=== PATIENT | female | born 1970 | race African-American/Black ===

== ENCOUNTER 2024-02-25 10:51 | Emergency (ER) | payer MEDICAID ==
[~2024-02-25] VITALS: Ht 172.7 cm; Wt 85.6 kg
[2024-02-25 11:51] LABS: Eosinophils # (auto) 0.2 10 ^3/uL (0-0.8); Hemoglobin 8.2 g/dL (12.2-16.2); Lymphocytes # (auto) 1.6 10 ^3/uL (0.4-5.4); Mean Corpuscular Volume 65.2 fL (80.0-100.0); Neutrophils # (auto) 2.5 10 ^3/uL (1.6-8.6); White Blood Cell 4.7 10^3/uL (4.4-10.8)
[2024-02-25 11:53] LABS: Chloride 110 mmol/L (98-107); Potassium 4.4 mmol/L (3.5-5.1); Sodium 142 mmol/L (136-145)
[2024-02-25 11:54] LABS: Anion Gap 4 (5-15); Basophils # (auto) 0 10 ^3/uL (0-0.2); Carbon Dioxide 28 mmol/L (20-30); Eosinophils % (auto) 4.7 % (0.0-7.0); Hematocrit 26.5 % (36.0-46.0); Lymphocytes % (auto) 34.7 % (10.0-50.0); Mean Corpuscular Hemoglobin 20.2 pg (28.0-32.0); Mean Corpuscular Hgb Conc. 31.1 g/dL (32.0-36.0); Monocytes # (auto) 0.3 10 ^3/uL (0-1.3); Monocytes % (auto) 6.9 % (0.0-12.0); Neutrophils % (auto) 52.7 % (37.0-80.0); Nucleated Red Blood Cells % 0.2 %; Red Blood Cells 4.06 10^6/uL (4.0-5.20); Red Cell Distribution Width 18.8 % (11.8-14.3)
[2024-02-25 11:55] LABS: Calcium 9.8 mg/dL (8.7-10.4)
[2024-02-25 11:59] LABS: BUN/Creatinine Ratio 13.9 (10.0-20.0); Blood Urea Nitrogen 14 mg/dL (9-23); Glucose 109 mg/dL (74-106)
[2024-02-25 12:28] VITALS: O2SAT 97
[2024-02-25] MEDS: cloNIDine HCL 0.1 MG TAB PO ONE (12:35)
[2024-02-25] MEDS ORDERED: AMLO1TAB23 PO ×2 (14:18→14:39)
[2024-02-25 14:42] VITALS: BP 166/76; PULSE 72; RESP 18; O2SAT 100
== END 2024-02-25 14:49 | disposition home or self-care (01) ==
LOC: ER 10:51
DX: I10 Essential (primary) hypertension (principal); D50.9 Iron deficiency anemia, unspecified
CPT/HCPCS: 36415; 80048; 84484; 85025

== ENCOUNTER 2025-07-30 18:17 | Inpatient (IN) | payer MEDICAID ==
[~2025-07-30] VITALS: Ht 172.7 cm; Wt 84.8 kg
[~2025-07-30 18:17] MED LIST: AMLO1TAB23 PO; ATEN25TA PO
--- NOTE | 2025-07-30 19:14 | ED.PDOC ---
GI ASSESSMENT HPI Comments 54 y.o female with PMhx of DM and sickle cell anemia, presents to the ED for a chief complaint of diffused abdominal pain associated with nausea and vomiting. Patient was diagnosed with diverticulitis x 2 weeks ago and admitted at [facility]. She finished her antibiotic course x 2 days ago. She states that pain has not subsided, states eating worsens her pain so she avoids it but now is becoming weak. She has associating acid reflux and bile emesis. She denies any diarrhea, rectal bleeding, fever or chills. Chief Complaint: Abdominal Pain Time Seen by MD: 19:00 Primary Care Provider: NONE Reviewed Notes: Nurses Notes, Medications, Allergies Allergies: Coded Allergies: NO KNOWN ALLERGIES (Unverified , 02/25/24) Home Meds Active Scripts Amlodipine Besylate (Amlodipine Besylate) 10 Mg Tab, 1 TAB PO DAILY, #30 TAB 5 Refills Prov:IVORY DUNCAN MD 02/25/24 Amlodipine Besylate (Amlodipine Besylate) 10 Mg Tab, 1 TAB PO DAILY, #30 TAB 5 Refills Prov:IVORY DUNCAN MD 02/25/24 Information Source: Patient Mode of Arrival: Ambulatory Timing: Weeks Duration: Since onset Quality: Sharp Vomitus: Mucous Stool: Normal Severity: Moderate Pain Location: Diffuse Associated sign and symptoms: Nausea, Vomiting, Abdominal Pain Past Medical History PAST MEDICAL HISTORY: Anemia, DM Surgical History: Denies all surgeries AGING DEPARTMENT SUPERVISOR History: No Pertinent AGING DEPARTMENT SUPERVISOR History Family History Family History: Reviewed,noncontributory to illness, Unknown Social History Smoker: Non-Smoker Alcohol: Denies ETOH Use Drugs: Denies Drug Use Lives In: Home Constitutional: denies: chills, diaphoresis, fatigue, fever, malaise, sweats, weakness, others EENTM: denies: blurred vision, double vision, ear bleeding, ear discharge, ear drainage, ear pain, ear ringing, eye pain, eye redness, hearing loss, mouth pain, mouth swelling, nasal discharge, nose bleeding, nose congestion, nose pain, photophobia, tearing, throat pain, throat swelling, voice changes, others Respiratory: denies: cough, hemoptysis, orthopnea, SOB at rest, shortness of breath, SOB with excertion, stridor, wheezing, others Cardiovascular: denies: chest pain, dizzy spells, diaphoresis, Dyspnea on exertion, edema, irregular heart beat, left arm pain, lightheadedness, palpitations, PND, syncope, others Gastrointestinal: reports: abdominal pain, nausea, vomiting; denies: abdomen distended, blood streaked bowels, constipated, diarrhea, dysphagia, difficulty swallowing, hematemesis, melena, poor appetite, poor fluid intake, rectal bleeding, rectal pain, others Genitourinary: denies: abnormal vagina bleeding, burning, dyspareunia, dysuria, flank pain, frequency, hematuria, incontinence, pain, , vagina discharge, urgency, others Neurological: denies: dizziness, fainting, headache, left sided numbness, left sided weakness, numbness, paresthesia, pre-existing deficit, right sided numbness, right sided weakness, seizure, speech problems, tingling, tremors, weakness, others Musculoskeletal: denies: back pain, gout, joint pain, joint swelling, muscle pain, muscle stiffness, neck pain, others Integumetry: denies: bruises, change in color, change in hair/nails, dryness, laceration, lesions, lumps, rash, wounds, others Hematologic/Lymphatic: denies: anemia, blood clots, easy bleeding, easy bruising, swollen glands, others Endocrine: denies: excessive hunger, excessive sweating, excessive thirst, excessive urination, flushing, intolerance to cold, intolerance to heat, unexplained weight gain, unexplained weight loss, others Psychiatric: denies: anxiety, bipolar disorder, depression, hopeless, panic disorder, schizophrenia, sleepless, suicidal, others All Other Systems: Reviewed and Negative Physical Exam General Appearance: Moderate Distress HEENT: Normal ENT Inspection, Pharynx Normal, TMs Normal Neck: Full Range of Motion, Non-Tender, Normal, Normal Inspection Respiratory: Chest Non-Tender, Lungs Clear, No Accessory Muscle Use, No Respiratory Distress, Normal Breath Sounds Cardiovascular: No Edema, No JVD, No Murmur, No Gallop, Normal Peripheral Pulses, Regular Rate/Rhythm Breast Exam: Deferred Gastrointestinal: Diffuse, Distended, No Organomegaly, No Pulsatile Mass, Normal Bowel Sounds, Soft, Suprapubic Genitalia: Deferred Pelvic: Deferred Rectal: Deferred Extremities: No calf tenderness, Normal capillary refill, Normal inspection, Normal range of motion, Non-tender, No pedal edema Musculoskeletal : Apperance: Normal Neurologic: Alert, technician support association II-XII nml as Tested, Motor Weakness, Normal Affect, Normal Mood, No Sensory Deficits Cerebellar Function: Normal Reflexes: Normal Skin: Dry, Normal Color, Warm Lymphatic: No Adenopathy Was a procedure done? Was a procedure done?: No GI differential Dx Differential Diagnosis: Diverticular disease, Esophagitis, Gastritis/PUD, Gastroenteritis, Inflammatory BD, Electrolyte Imbalance, Bacterial, Parasitic, Viral X-Ray, Labs, Meds, VS Vital Signs Date Time Temp Pulse Resp B/P (MAP) Pulse Ox O2 Delivery O2 Flow Rate FiO2 07/30/25 18:32 106 07/30/25 18:21 98.0 115 16 154/84 100 98.0 Lab Test 07/30/25 19:10 Range/Units White Blood Count 8.4 4.4-10.8 10^3/uL Red Blood Count 4.69 4.0-5.20 10^6/uL Hemoglobin 9.2 L 12.2-16.2 g/dL Hematocrit 30.0 L 36.0-46.0 % Mean Corpuscular Volume 64.1 L 80.0-100.0 fL Mean Corpuscular Hemoglobin 19.7 L 28.0-32.0 pg Mean Corpuscular Hemoglobin Concent 30.7 L 32.0-36.0 g/dL Red Cell Distribution Width 22.2 H 11.8-14.3 % Platelet Count 510 H 140-450 10^3/uL Mean Platelet Volume 8.1 6.9-10.8 fL Neutrophils (%) (Auto) 76.9 37.0-80.0 % Lymphocytes (%) (Auto) 17.7 10.0-50.0 % Monocytes (%) (Auto) 4.9 0.0-12.0 % Eosinophils (%) (Auto) 0.2 0.0-7.0 % Basophils (%) (Auto) 0.3 0.0-2.0 % Neutrophils # (Auto) 6.5 1.6-8.6 10 ^3/uL Lymphocytes # (Auto) 1.5 0.4-5.4 10 ^3/uL Monocytes # (Auto) 0.4 0-1.3 10 ^3/uL Eosinophils # (Auto) 0 0-0.8 10 ^3/uL Basophils # (Auto) 0 0-0.2 10 ^3/uL Nucleated Red Blood Cells 0.0 % Sodium Level 139 136-145 mmol/L Potassium Level 3.3 L 3.5-5.1 mmol/L Chloride Level 102 98-107 mmol/L Carbon Dioxide Level 24 20-31 mmol/L Anion Gap 13 5-15 Blood Urea Nitrogen 9 9-23 mg/dL Creatinine 1.07 H 0.550-1.02 mg/dL Glomerular Filtration Rate Calc 61 >90 mL/min BUN/Creatinine Ratio 8.4 L 10.0-20.0 Serum Glucose 155 H 74-106 mg/dL Calcium Level 9.9 8.7-10.4 mg/dL Total Bilirubin 0.6 0.2-1.0 mg/dL Aspartate Amino Transferase (AST) 17 13-40 U/L Alanine Aminotransferase (ALT) < 9 7-40 U/L Alkaline Phosphatase 58 46-116 U/L Total Protein 8.7 H 5.7-8.2 g/dL Albumin 4.4 3.2-4.8 g/dL Lipase 30 12-53 U/L Time of 1ST Reevaluation: 19:08 Reevaluation 1ST: Unchanged Patient Education/Counseling: Diagnosis, Treatment, Prognosis Family Education/Counseling: No Family Present SEPSIS Sepsis Screen Date sepsis recognized/suspect: Jul 30, 2025 Time Sepsis recognized/suspect: 1820 Recent Procedure: No On Antibiotic Therapy: No Respiratory Rate >20: No Heart Rate >90: Yes Temp<36 C (96.8 F) or >38.3 C: No SBP <90 or MAP <65 mmHG: No New Acute Mental Status Change: No Is the patient on CPAP, BIPAP,: No Physician Orders Electrocardigram (07/30/25 18:45) Urinalysis (07/30/25 19:04) Ct Ab Pel Wo Con-No Oral Or Iv (07/30/25 19:04) Heplock Iv (07/30/25 19:04) Pelvic Setup (07/30/25 19:04) Or Scrub Tech (07/30/25 19:04) Blood Pressure (07/30/25 19:04) Ngt/Ogt (07/30/25 ) Vital Signs Date Time Temp Pulse Resp B/P (MAP) Pulse Ox O2 Delivery O2 Flow Rate FiO2 07/30/25 18:32 106 07/30/25 18:21 98.0 115 16 154/84 100 98.0 Laboratory Tests Test 07/30/25 19:10 White Blood Count 8.4 10^3/uL (4.4-10.8) Departure 1 Departure Time of Disposition: 20:28 Impression: Primary Impression: Intractable abdominal pain Additional Impression: Small bowel obstruction Disposition: ADMITTED INPATIENT Admit to: Med Surg Condition: Fair Critical Care Note Critical Care Time?: No Stability Stability form required: No I personally scribed for STEFANI ROONEY MD ([email or web address]) on 07/30/25 at 19:14. Electronically submitted by Leelee Valencia ([facility]). STEFANI ROONEY MD Jul 30, 2025 19:14
[2025-07-30 19:30] LABS: Hematocrit 30.0 % (36.0-46.0); Hemoglobin 9.2 g/dL (12.2-16.2); Mean Corpuscular Hemoglobin 19.7 pg (28.0-32.0)
[2025-07-30 19:32] LABS: Mean Corpuscular Volume 64.1 fL (80.0-100.0); Nucleated Red Blood Cells % 0.0 %
[2025-07-30 19:43] LABS: Albumin 4.4 g/dL (3.2-4.8); Alkaline Phosphatase 58 U/L (46-116); Anion Gap 13 (5-15); BUN/Creatinine Ratio 8.4 (10.0-20.0); Bilirubin, Total 0.6 mg/dL (0.2-1.0); Calcium 9.9 mg/dL (8.7-10.4); Carbon Dioxide 24 mmol/L (20-31); Chloride 102 mmol/L (98-107); Lipase 30 U/L (12-53); Sodium 139 mmol/L (136-145)
[2025-07-30 19:44] LABS: Alanine Aminotransferase < 9 U/L (7-40); Blood Urea Nitrogen 9 mg/dL (9-23); Glucose 155 mg/dL (74-106); Potassium 3.3 mmol/L (3.5-5.1); Total Protein 8.7 g/dL (5.7-8.2)
--- NOTE | 2025-07-30 20:19 | DVH ---
EXAM: CT CT AB PEL WO CON-NO ORAL OR IV History: pain Comparison Study: None TECHNIQUE: Multidetector spiral CT of the abdomen was performed from lung bases to pubic symphysis. Imaging was performed without IV contrast. Axial, coronal and sagittal multiplanar reformats were obtained from the axial data set by the technologist. Radiation Dose : 1. Abdomen/Pelvis: CTDIvol 7.63 mGy, DLP 413.88 mGy*cm. FINDINGS: Evaluation of solid organs is limited due to lack of intravenous contrast use. Lung Bases: No acute or significant lung base finding. Normal heart size. No pleural or pericardial effusion. Liver: The liver is normal in size. No focal lesions. Gallbladder and Biliary Tree: Unremarkable Spleen: Unremarkable Pancreas: The pancreas is grossly normal in appearance. Adrenal Glands: Unremarkable Kidneys: Kidneys are grossly normal without calculi or hydronephrosis. Bladder: Grossly unremarkable for degree of distention. Bowel: Dilated proximal and mid colon measuring up to 6.8 cm with relative transition at the mid descending colon. Suspect some colonic wall thickening in this region. Surrounding inflammatory changes throughout the omentum. Ascites: Absent Lymphadenopathy: No mesenteric, retroperitoneal or periportal lymphadenopathy. Abdominal Wall and Mesentery: Unremarkable. Vasculature: The visualized abdominal aorta is normal in size and caliber. Evaluation of abdominal and pelvic vessels is limited due to lack of intravenous contrast. Pelvic Organs: Unremarkable Musculoskeletal: No aggressive focal bony lesions, acute fractures or dislocation. IMPRESSION: Partial large bowel obstruction with transition at the mid descending colon. The colon here appears slightly thickened with surrounding inflammatory changes. The differential includes a malignancy versus focal colitis/diverticulitis. Endoscopic correlation recommended. Radiation optimization: All CT scans at this facility use at least one of these dose optimization techniques: automated exposure control mA and/or kV adjustment per patient size (includes targeted exams where dose is matched to clinical indication) or iterative reconstruction.
[2025-07-30] MEDS ORDERED: ONDANSETRON HCL 4 MG/2 ML VIAL IV PRN (23:30)
[2025-07-31] VITALS (9 sets, daily range): BP systolic 159–173; BP diastolic 85–100; PULSE 59–91; RESP 14–20; TEMP 97.7–98.7; O2SAT 94–98
[2025-07-31] MEDS: MORPHINE SULFATE 4 MG/ML SYR/VIAL IV ONE (00:23)
[2025-07-31] MEDS: PANTOPRAZOLE 40 MG/10 ML VIAL INJ IV ONE (00:23)
[2025-07-31] MEDS: ONDANSETRON HCL 4 MG/2 ML VIAL IV ONE (00:24)
[2025-07-31] MEDS: SODIUM CHLORIDE 0.9% 1,000 ML IVB ONE (00:24)
--- NOTE | 2025-07-31 00:48 | DVH ---
CHEST RADIOGRAPH INDICATION: NGT placement verification TECHNIQUE: Single frontal view of the chest was obtained COMPARISON: None FINDINGS: NG tube in the mid stomach. Lungs and pleural spaces are clear. Cardiac silhouette and gia are within normal limits. Bones and soft tissues demonstrate no significant abnormality. IMPRESSION: No acute disease.
[2025-07-31] MEDS ORDERED: DEXTROSE (50%) 50ML SYRG IV PRN (02:15)
[2025-07-31] MEDS: SODIUM CHLORIDE 0.9% 1,000 ML IV ONE (02:54)
--- NOTE | 2025-07-31 03:03 | DVHHPRES ---
History of Present Illness Resident Creating Document: DRISS CRAWFORD RESIDENT History of Present Illness Melody Leon is a 54-year-old female with past medical history of hypertension, sickle cell trait presented with complaints of abdominal pain and vomiting since 10 days. Patient was admitted at [facility] 10 days ago for diverticulitis. She was sent home with Flagyl and levofloxacin. Patient states that the pain worsened after she was done with antibiotics. She also complains of associated nausea and decreased appetite. She denies constipation or diarrhea. Patient states that she has lost 10 lb in 1 month. PMHx:hypertension, sickle cell trait PSHx: None Family history: sickle cell trait in daughter Social history: denies smoking, alcohol or illicit drugs. Lives with family Home medication: amlodipine, atenolol Allergic history: none Review of Systems Review of Systems General: patient denies fever, fatigue, weaknes, sweating, any recent changes in appetite and weight HEENT: No headaches, visiual changes, hearing loss, tinnitus, nasal congestion and discharge, and sore throat. Cardiovascular: Denies chest pain, palpitations, dyspnea on exertion, orthopnea, or claudication. Respiratory: No cough, and wheezing. Gastrointestinal: Complains of abdominal pain and vomiting Genitourinary: No dysuria, hematuria, discharge, frequency, urgency, nocturia, incontinence, and urinary retention. Endocrine: No heat or cold intolerance, polydipsia, polyuria, and polyphagia. Neurological: No dizziness, extremity weakness and numbness, tremors, gait disturbance, seizures, and memory impairment. Psychiatric: Denies depression, anxiety,or insomnia. Musculoskeletal: Denies neck pain, stiffness and swelling, back pain, muscle weakness, joint pain, stiffness, swelling, or limited range of motion. Skin: No rashes, itching, skin lesion, changes in hair, nail, skin texture and breast. Hematologic/Lymphatic: Denies easy bruising, bleeding tendencies, or lymph node enlargement. Allergies: Coded Allergies: NO KNOWN ALLERGIES (Unverified , 02/25/24) Medications Current Medications Medications Dose Ordered Sig/Latisha Route Start Time Stop Time Status Last Admin Dose Admin Ondansetron HCl 4 mg Q4HP PRN IV 07/30/25 23:30 Amlodipine Besylate 10 mg DAILY PO 08/01/25 10:00 Atenolol 25 mg BID PO 07/31/25 10:00 Sodium Chloride 1,000 ml @ 100 mls/hr Q10H IV 07/31/25 04:00 Ceftriaxone Sodium 50 ml @ 100 mls/hr DAILY@09 IV 08/01/25 09:00 Metronidazole 100 ml @ 100 mls/hr Q8HR IV 07/31/25 14:00 Ondansetron HCl 4 mg Q8HPRN PRN IV 07/31/25 02:15 Diagnostic Test (Pha) 1 strip ACHS 07/31/25 07:00 Insulin Human Regular ACHS SC 07/31/25 07:00 Dextrose 50 ml UD PRN IV 07/31/25 02:15 Exam Vital Signs Vital Signs Date Time Temp Pulse Resp B/P (MAP) Pulse Ox O2 Delivery O2 Flow Rate FiO2 07/31/25 02:38 97.9 87 17 159/86 (110) 94 97.9 07/30/25 23:01 Room Air* 0 21 Exam General Appearance: Alert, Oriented X3, Cooperative, No acute distress HEENT: Atraumatic, PERRLA, EOMI, Mucous membrane moist/pink Respiratory: Clear to auscultation, Normal air movement Cardiovascular: Regular rate, Normal S1, Normal S2, No murmurs, no chest wall tenderness Abdominal: abdomen soft with no tenderness Extremities: No clubbing, No cyanosis, No edema, Normal pulses, No tenderness/swelling Skin: No rashes, No breakdown, No significant lesion Neuro: Normal gait, Normal speech, Strength at 5/5 X4 ext, Normal tone, Sensation intact, Cranial nerves 3-12 NL, Reflexes 2+ Psych/Mental Status: Mental status NL, Mood NL Labs/Xrays Labs Test 07/30/25 19:10 Range/Units White Blood Count 8.4 4.4-10.8 10^3/uL Red Blood Count 4.69 4.0-5.20 10^6/uL Hemoglobin 9.2 L 12.2-16.2 g/dL Hematocrit 30.0 L 36.0-46.0 % Mean Corpuscular Volume 64.1 L 80.0-100.0 fL Mean Corpuscular Hemoglobin 19.7 L 28.0-32.0 pg Mean Corpuscular Hemoglobin Concent 30.7 L 32.0-36.0 g/dL Red Cell Distribution Width 22.2 H 11.8-14.3 % Platelet Count 510 H 140-450 10^3/uL Mean Platelet Volume 8.1 6.9-10.8 fL Neutrophils (%) (Auto) 76.9 37.0-80.0 % Lymphocytes (%) (Auto) 17.7 10.0-50.0 % Monocytes (%) (Auto) 4.9 0.0-12.0 % Eosinophils (%) (Auto) 0.2 0.0-7.0 % Basophils (%) (Auto) 0.3 0.0-2.0 % Neutrophils # (Auto) 6.5 1.6-8.6 10 ^3/uL Lymphocytes # (Auto) 1.5 0.4-5.4 10 ^3/uL Monocytes # (Auto) 0.4 0-1.3 10 ^3/uL Eosinophils # (Auto) 0 0-0.8 10 ^3/uL Basophils # (Auto) 0 0-0.2 10 ^3/uL Nucleated Red Blood Cells 0.0 % Sodium Level 139 136-145 mmol/L Potassium Level 3.3 L 3.5-5.1 mmol/L Chloride Level 102 98-107 mmol/L Carbon Dioxide Level 24 20-31 mmol/L Anion Gap 13 5-15 Blood Urea Nitrogen 9 9-23 mg/dL Creatinine 1.07 H 0.550-1.02 mg/dL Glomerular Filtration Rate Calc 61 >90 mL/min BUN/Creatinine Ratio 8.4 L 10.0-20.0 Serum Glucose 155 H 74-106 mg/dL Calcium Level 9.9 8.7-10.4 mg/dL Total Bilirubin 0.6 0.2-1.0 mg/dL Aspartate Amino Transferase (AST) 17 13-40 U/L Alanine Aminotransferase (ALT) < 9 7-40 U/L Alkaline Phosphatase 58 46-116 U/L Total Protein 8.7 H 5.7-8.2 g/dL Albumin 4.4 3.2-4.8 g/dL Lipase 30 12-53 U/L SEPSIS Sepsis Screen Date sepsis recognized/suspect: Jul 30, 2025 Time Sepsis recognized/suspect: 2300 Recent Procedure: No On Antibiotic Therapy: No Respiratory Rate >20: No Heart Rate >90: Yes Temp<36 C (96.8 F) or >38.3 C: No SBP <90 or MAP <65 mmHG: No New Acute Mental Status Change: No Is the patient on CPAP, BIPAP,: No Physician Orders Urinalysis (07/30/25 19:04) Ct Ab Pel Wo Con-No Oral Or Iv (07/30/25 19:04) Heplock Iv (07/30/25 19:04) Pelvic Setup (07/30/25 19:04) Online Project Manager (07/30/25 19:04) Blood Pressure (07/30/25:04) Ngt/Ogt (07/30/25 ) Admit (07/30/25 23:17) Allergies (07/30/25 23:17) Code Status (07/30/25 23:17) Ondansetron Hcl (Zofran) (07/30/25 23:30) Complete Blood Count (07/31/25 04:00) Comprehensive Metabolic Panel (07/31/25 04:00) Npo (Nothing By Mouth) Diet (07/31/25 Breakfast) Condition: Fair (07/30/25 23:17) Ng To Lis (07/30/25 23:28) Chest Xray 1 View (07/31/25 00:08) Atenolol Tablet (Tenormin Tablet) (07/31/25 10:00) Stool Occult Blood (07/31/25 02:01) Magnesium (07/31/25 02:01) Iron Panel (07/31/25 02:01) Ferritin (07/31/25 02:01) Vitamin D, 25-Hydroxy (07/31/25 02:01) Vitamin B12 (07/31/25 02:01) Drug Screen (07/31/25 02:01) Urinalysis (07/31/25 02:01) PTPTT (07/31/25 02:01) Erythrocyte Sedimentation Rate (07/31/25 02:01) C-Reactive Protein (07/31/25 02:01) Sodium Chloride 0.9% (07/31/25 02:15) Sodium Chloride 0.9% (07/31/25 04:00) Metronidazole 500mg/100ml (Flagyl 500mg/ (07/31/25 14:00) Ondansetron Hcl (Zofran) (07/31/25 02:15) Blood Culture (07/31/25 02:01) Urine Bacterial Culture (07/31/25 02:01) Clostridium Difficile Toxin (07/31/25 02:01) Stool Wbc (07/31/25 02:01) Potassium Chloride (Potassium Chloride). (07/31/25 02:15) Hemoglobin A1c (07/31/25 02:09) Glucose Blood (Accu-Chek Comfort Curve T (07/31/25 07:00) Insulin R (Human) (Insulin R) (07/31/25 07:00) Dextrose 50% Syringe (07/31/25 02:15) Ceftriaxone 1gm/50ml (Rocephin) (07/31/25 02:30) Metronidazole 500mg/100ml (Flagyl 500mg/ (07/31/25 03:00) Amlodipine Tablet (Norvasc Tablet) (08/01/25 10:00) Ceftriaxone 1gm/50ml (Rocephin) (08/01/25 09:00) Vital Signs Date Time Temp Pulse Resp B/P (MAP) Pulse Ox O2 Delivery O2 Flow Rate FiO2 07/31/25 02:38 97.9 87 17 159/86 (110) 94 97.9 07/31/25 01:00 85 14 152/80 (104) 96 07/31/25 00:23 103 21 157/93 07/31/25 00:00 98 07/30/25 23:01 Room Air* 0 21 07/30/25 23:01 98.7 103 21 157/93 (114) 99 98.7 Laboratory Tests Test 07/30/25 19:10 White Blood Count 8.4 10^3/uL (4.4-10.8) Medications Medications Dose Ordered Sig/Latisha Route Start Time Stop Time Status Last Admin Dose Admin Morphine Sulfate 4 mg ONCE ONCE IV 07/30/25 19:15 07/30/25 19:16 DC 07/31/25 00:23 4 MG Ondansetron HCl 4 mg ONCE ONCE IV 07/30/25 19:15 07/30/25 19:16 DC 07/31/25 00:24 4 MG Pantoprazole Sodium 40 mg ONCE ONCE IV 07/30/25 19:15 07/30/25 19:16 DC 07/31/25 00:23 40 MG Sodium Chloride 1,000 ml @ 1,000 mls/hr Q1H ONCE IVB 07/30/25 19:15 07/30/25 20:14 DC 07/31/25 00:24 1,000 MLS/HR Assessment/Plan Assessment/Plan Assessment and plan Acute diverticulitis Partial large bowel obstruction Acute intractable abdominal pain due to above Possible colon cancer Microcytic anemia due to above Reactive thrombocytosis due to above CT Abdomen: Partial large bowel obstruction with transition at the mid descending colon. The colon here appears slightly thickened with surrounding inflammatory changes. The differential includes a malignancy versus focal colitis/diverticulitis NPO Stool occult blood Iron panel, ferritin IV fluids Rocephin, Flagyl Zofran Hypokalemia potassium 3.3 Replenished Hyperglycemia, rule out type 2 diabetes Blood glucose 155 Follow A1c Essential hypertension Continue amlodipine and atenolol Sickle cell trait Follow up with PCP on discharge PUD prophylaxis: not needed DVT prophylaxis: ambulatory Barriers to discharge: Medical diagnosis and management in progress. Patient lives with family. Independent for ADL. PCP: Dr. Kent Specialist Relevant To Admission: none Case discussed with Dr. Peterson. Code Status: Full Code. Complex patient care discussion needed. Spend total 33 minutes for bedside assessment, case discussion and management. Plan discussed with: Patient My Orders Orders - DRISS CRAWFORD RESIDENT Procedure Category Date Status Time Admit ADMIT 07/30/25 Transmitted 23:17 Allergies YANIRA 07/30/25 In Process 23:17 Code Status CODE 07/30/25 Transmitted 23:17 Ondansetron Hcl PHA 07/30/25 In Process (Zofran) 23:30 Complete Blood Count LAB 07/31/25 Logged 04:00 Comprehensive LAB 07/31/25 Logged Metabolic Panel 04:00 Npo (Nothing By DIET 07/31/25 Transmitted Mouth) Diet Breakfast Condition: Fair YANIRA 07/30/25 In Process 23:17 Chest Xray 1 View XY 07/31/25 Resulted 00:08 Atenolol Tablet PHA 07/31/25 In Process (Tenormin Tablet) 10:00 Stool Occult Blood LAB 07/31/25 Logged 02:01 Magnesium LAB 07/31/25 Logged 02:01 Iron Panel LAB 07/31/25 Logged 02:01 Ferritin LAB 07/31/25 Logged 02:01 Vitamin D, 25-Hydroxy LAB 07/31/25 Logged 02:01 Vitamin B12 LAB 07/31/25 Logged 02:01 Drug Screen LAB 07/31/25 Logged 02:01 Urinalysis LAB 07/31/25 Uncollected 02:01 PTPTT LAB 07/31/25 Logged 02:01 Erythrocyte LAB 07/31/25 Logged Sedimentation Rate 02:01 C-Reactive Protein LAB 07/31/25 Logged 02:01 Sodium Chloride 0.9% PHA 07/31/25 In Process 02:15 Sodium Chloride 0.9% PHA 07/31/25 In Process 04:00 Metronidazole PHA 07/31/25 In Process 500mg/100ml (Flagyl 14:00 Ondansetron Hcl PHA 07/31/25 In Process (Zofran) 02:15 Blood Culture SUJIT 07/31/25 Uncollected 02:01 Urine Bacterial SUJIT 07/31/25 Uncollected Culture 02:01 Clostridium Difficile SUJIT 07/31/25 Uncollected Toxin 02:01 Stool Wbc LAB 07/31/25 Logged 02:01 Potassium Chloride PHA 07/31/25 In Process (Potassium Chloride). 02:15 Hemoglobin A1c LAB 07/31/25 Logged 02:09 Glucose Blood PHA 07/31/25 In Process (Accu-Chek Comfort 07:00 Insulin R (Human) PHA 07/31/25 In Process (Insulin R) 07:00 Dextrose 50% Syringe PHA 07/31/25 In Process 02:15 Ceftriaxone 1gm/50ml PHA 07/31/25 In Process (Rocephin) 02:30 Metronidazole PHA 07/31/25 In Process 500mg/100ml (Flagyl 03:00 Amlodipine Tablet PHA 08/01/25 In Process (Norvasc Tablet) 10:00 Ceftriaxone 1gm/50ml PHA 08/01/25 In Process (Rocephin) 09:00 Visit Coding STANDARD RES Billing Provider: DESTINEE PETERSON MD Date of Service if different f: Jul 31, 2025 Common Visit Codes: 33359-[id number] INP/OBS CARE (HIGH) Secondary Visit Codes: 07731-[id number] CARE PLAN 30 MINUTES DRISS CRAWFORD RESIDENT Jul 31, 2025 03:03
[2025-07-31] MEDS: SODIUM CHLORIDE 0.9% 1,000 ML IV SCH (05:16)
[2025-07-31 05:42] LABS: Hemoglobin 8.3 g/dL (12.2-16.2)
[2025-07-31 05:44] LABS: Hematocrit 26.9 % (36.0-46.0); Mean Corpuscular Hemoglobin 20.0 pg (28.0-32.0); Mean Corpuscular Volume 64.8 fL (80.0-100.0); Nucleated Red Blood Cells % 0.1 %
[2025-07-31 05:57] LABS: Albumin 3.8 g/dL (3.2-4.8); Alkaline Phosphatase 51 U/L (46-116); Anion Gap 12 (5-15); BUN/Creatinine Ratio 9.0 (10.0-20.0); Bilirubin, Total 0.4 mg/dL (0.2-1.0); Calcium 9.1 mg/dL (8.7-10.4); Carbon Dioxide 24 mmol/L (20-31); Chloride 106 mmol/L (98-107); Sodium 142 mmol/L (136-145); Total Protein 7.5 g/dL (5.7-8.2)
[2025-07-31 06:05] LABS: Alanine Aminotransferase < 9 U/L (7-40); Blood Urea Nitrogen 9 mg/dL (9-23); Glucose 106 mg/dL (74-106); Potassium 3.1 mmol/L (3.5-5.1)
[2025-07-31 06:07] LABS: INR 1.06 (0.9-1.15); Magnesium 1.9 mg/dL (1.6-2.6); Partial Thromboplastin Time 23.9 SEC (24.5-34.5); Prothrombin Time 11.2 sec (9.3-11.8)
[2025-07-31] MEDS: ACCU-CHEK COMFORT CURVE STRIP VI SCH (06:15)
[2025-07-31] MEDS: InsuLIN REG 1unit/0.01ml Soln (100units/ml) SC SCH (06:16)
[2025-07-31 06:23] LABS: Iron 22.0 ug/dL (50-170)
[2025-07-31 06:27] LABS: Ferritin 58.0 ng/mL (10-291)
[2025-07-31 06:32] LABS: Total Iron Binding Capacity 250.0 ug/dL (250-425)
[2025-07-31 09:15] LABS: Urine Protein, UAD 1+ (Negative)
[2025-07-31 09:23] LABS: Opiate Scree,Urine Pos (NEGATIVE)
[2025-07-31] MEDS: ATENOLOL 25 MG TAB PO SCH (09:23)
[2025-07-31] MEDS: POTASSIUM CHLORIDE 40 MEQ, LIDOCAINE 1% (LOCAL ANESTH.) 4 ML in SODIUM CHL 0.9% 250 ML IV ONE (09:23)
[2025-07-31 09:37] LABS: Amphetamine Screen, Urine Neg (NEGATIVE); Barbiturate Scree,Urine Neg (NEGATIVE); Benzodiazephine Screen, Urine Neg (NEGATIVE); Cannabinoid Screen, Urine Neg (NEGATIVE); Cocaine Screen, Urine Neg (NEGATIVE); Phencyclidine Screen, Urine Neg (NEGATIVE)
--- NOTE | 2025-07-31 10:59 | DVHINCON2 ---
Date of service: Jul 31, 2025 History of Present Illness 54-year-old female with diabetes and sickle cell trait recently discharged from [facility] for diverticulitis now complaining of four day history of diffuse abdominal pain. Patient denies any bowel movements or flatus. Patient also has never had a colonoscopy. Past Medical History Hypertension. Diabetes. Sickle cell trait. Past Surgical History None Family History: Patient reports no known family medical history. Family History Sister with breast cancer. Social History Denies alcohol, tobacco, IV drug use Allergies: Coded Allergies: NO KNOWN ALLERGIES (Unverified , 02/25/24) Home Meds Active Scripts Amlodipine Besylate (Amlodipine Besylate) 10 Mg Tab, 1 TAB PO DAILY, #30 TAB 5 Refills Prov:IVORY DUNCAN MD 02/25/24 Amlodipine Besylate (Amlodipine Besylate) 10 Mg Tab, 1 TAB PO DAILY, #30 TAB 5 Refills Prov:IVORY DUNCAN MD 02/25/24 Current Medications Current Medications Medications (Trade) Dose Ordered Sig/Latisha Route PRN Reason Start Time Stop Time Status Last Admin Ondansetron HCl (Zofran) 4 mg Q4HP PRN IV NAUSEA / VOMITING 07/30/25 23:30 Amlodipine Besylate (Norvasc Tablet) 10 mg DAILY PO 08/01/25 10:00 Atenolol (Tenormin Tablet) 25 mg BID PO 07/31/25 10:00 Sodium Chloride 1,000 ml @ 100 mls/hr Q10H IV 07/31/25 04:00 07/31/25 05:16 Ceftriaxone Sodium 50 ml @ 100 mls/hr DAILY@09 IV 08/01/25 09:00 Metronidazole 100 ml @ 100 mls/hr Q8HR IV 07/31/25 14:00 Ondansetron HCl (Zofran) 4 mg Q8HPRN PRN IV NAUSEA / VOMITING 07/31/25 02:15 Diagnostic Test (Pha) (Accu-Chek Comfort Curve T) 1 strip ACHS 07/31/25 07:00 07/31/25 06:15 Insulin Human Regular (InsuLIN R) ACHS SC 07/31/25 07:00 Dextrose 50 ml UD PRN IV Blood Sugar LESS THAN 60 07/31/25 02:15 Vital Signs Vital Signs Date Time Temp Pulse Resp B/P (MAP) Pulse Ox O2 Delivery O2 Flow Rate FiO2 07/31/25 09:05 98.3 84 18 159/86 (110) 95 98.3 07/31/25 08:00 Room Air* 0 21 Physical Exam GEN: Age-appropriate male in no acute distress. NG tube to low intermittent suction. HEENT: Normocephalic atraumatic. Moist mucous membranes. Anicteric sclerae. CV: RRR Respiratory: CTAB ABD: Soft but moderate to severely distended abdomen with a small reducible umbilical hernia measuring 1 cm. Minimal tenderness to palpation throughout. CT of the abdomen and pelvis: Partial large bowel obstruction with transition point in the mid descending colon. Colon here appeared slightly thickened with surrounding inflammatory changes. Labs/Diagnostic Data Labs Test 07/31/25 08:20 07/31/25 05:52 07/31/25 04:48 07/30/25 19:10 Range/Units Urine Color Light-yellow Yellow Urine Clarity Clear Clear Urine pH 5.5 5.0-9.0 Urine Specific [place] 1.015 1.001-1.035 Urine Protein 1+ H Negative Urine Ketones Negative Negative Urine Blood 1+ H Negative /uL Urine Nitrite Negative Negative Urine Bilirubin Negative Negative Urine Urobilinogen Normal Negative mg/dL Urine Leukocyte Esterase Trace Negative /uL Urine RBC 2 0 - 4 /hpf Urine Microscopic WBC 12 H 0-5 /HPF Urine Squamous Epithelial Cells Few <5 /hpf Urine Bacteria None seen None Seen /hpf Urine Hyaline Casts Mod 0 - 2 /lpf Urine Mucus Few None Seen Urine Glucose Normal Normal mg/dL Urine Opiates Screen Pos NEGATIVE Urine Fentanyl Screen Neg NEGATIVE Urine Barbiturates Screen Neg NEGATIVE Urine Phencyclidine Screen Neg NEGATIVE Urine Amphetamines Screen Neg NEGATIVE Urine Benzodiazepines Screen Neg NEGATIVE Urine Cocaine Screen Neg NEGATIVE Urine Cannabinoids Screen Neg NEGATIVE POC Glucose 102 70-106 mg/dl White Blood Count 5.9 # 4.4-10.8 10^3/uL Red Blood Count 4.15 4.0-5.20 10^6/uL Hemoglobin 8.3 L 12.2-16.2 g/dL Hematocrit 26.9 #L 36.0-46.0 % Mean Corpuscular Volume 64.8 L 80.0-100.0 fL Mean Corpuscular Hemoglobin 20.0 L 28.0-32.0 pg Mean Corpuscular Hemoglobin Concent 30.9 L 32.0-36.0 g/dL Red Cell Distribution Width 22.0 H 11.8-14.3 % Platelet Count 377 140-450 10^3/uL Mean Platelet Volume 7.0 6.9-10.8 fL Neutrophils (%) (Auto) 68.4 37.0-80.0 % Lymphocytes (%) (Auto) 21.9 10.0-50.0 % Monocytes (%) (Auto) 8.6 0.0-12.0 % Eosinophils (%) (Auto) 0.3 0.0-7.0 % Basophils (%) (Auto) 0.8 0.0-2.0 % Neutrophils # (Auto) 4.0 1.6-8.6 10 ^3/uL Lymphocytes # (Auto) 1.3 0.4-5.4 10 ^3/uL Monocytes # (Auto) 0.5 0-1.3 10 ^3/uL Eosinophils # (Auto) 0 0-0.8 10 ^3/uL Basophils # (Auto) 0 0-0.2 10 ^3/uL Nucleated Red Blood Cells 0.1 % Erythrocyte Sedimentation Rate 37 H 0-20 mm/hr Prothrombin Time 11.2 9.3-11.8 sec Prothrombin Time INR 1.06 0.9-1.15 Activated Partial Thromboplast Time 23.9 L 24.5-34.5 SEC Sodium Level 142 136-145 mmol/L Potassium Level 3.1 L 3.5-5.1 mmol/L Chloride Level 106 98-107 mmol/L Carbon Dioxide Level 24 20-31 mmol/L Anion Gap 12 5-15 Blood Urea Nitrogen 9 9-23 mg/dL Creatinine 1.00 0.550-1.02 mg/dL Glomerular Filtration Rate Calc 66 >90 mL/min BUN/Creatinine Ratio 9.0 L 10.0-20.0 Serum Glucose 106 74-106 mg/dL Hemoglobin A1c 5.7 <5.7 % A1C Calcium Level 9.1 8.7-10.4 mg/dL Magnesium Level 1.9 1.6-2.6 mg/dL Iron Level 22 L 50-170 ug/dL Total Iron Binding Capacity 250 250-425 ug/dL Percent Iron Saturation 8.8 L 15-50 % Ferritin 58.0 10-291 ng/mL Total Bilirubin 0.4 0.2-1.0 mg/dL Aspartate Amino Transferase (AST) 14 13-40 U/L Alanine Aminotransferase (ALT) < 9 7-40 U/L Alkaline Phosphatase 51 46-116 U/L C-Reactive Protein High Sensitivity 4.79 H <1.0 mg/dL Total Protein 7.5 5.7-8.2 g/dL Albumin 3.8 3.2-4.8 g/dL Vitamin D 25-Hydroxy 40.1 30.0-100 ng/mL Lipase 30 12-53 U/L Assessment 1. Colonic obstruction secondary to possible mass versus stricture at the descending colon. Plan/Recommendation 1. Recommend GI consultation for possible colonoscopy for biopsy. If there was no clinical improvement, patient will need surgical exploration with resection of the obstructing lesion with possible colostomy were unable to bowel prep the patient. Plan discussed with: Patient CECILIA HILLS MD Jul 31, 2025 10:59
[2025-07-31] MEDS: IOHEXOL 300 MG/ML 100ML BOTTLE IJ ONE (11:45)
--- NOTE | 2025-07-31 12:00 | DVH ---
EXAM: CT CT AB PEL WITH IV CON ONLY History: colonic obstruction suspicious for malignancy Comparison Study: None Exam Date: 07/31/2025 11:21 AM Radiation Dose Information: CT Dose: CTDI volume is 8.22 mGy. Dose-length product is 486.25 mGy*cm TECHNIQUE: During the uneventful, intravenous administration of contrast material, multislice data acquisition was obtained through the abdomen and pelvis. The data set was subsequently reconstructed into axial images. Images were reviewed on a work station using a combination of axial and multiplanar using a variety of window levels and settings. FINDINGS: Lower chest: Clear. Liver: Unremarkable Biliary system: Unremarkable Spleen: Unremarkable Pancreas: Unremarkable. Adrenals: Unremarkable. Kidneys and ureters: Normal renal enhancement. No hydronephrosis Bowel: Irregular masslike wall thickening involving the mid descending colon, with upstream diffuse bowel wall distention, highly suspicious for malignancy with partial obstruction. Surrounding inflammatory changes and nodular soft tissue thickening noted where the wall thickening is seen, likely representing extra luminal extension of disease. Gastric drainage tube within the stomach. Bladder: Unremarkable Reproductive organs: No abnormal mass. Lymph nodes: Borderline enlarged retroperitoneal lymph nodes including 9 mm left para-aortic lymph node (image 39). Peritoneum: Small volume free fluid in the pelvis. Vessels: Patent major intra-abdominal vasculature. Bones and soft tissue: No aggressive osseous lesion IMPRESSION: Findings suspicious for descending colonic malignancy with resultant partial obstruction. Recommend colonoscopy. Surrounding inflammatory changes and adjacent nodular soft tissue thickening may represent extraluminal extension of disease/malignancy versus superimposed colitis. Indeterminate borderline enlarged retroperitoneal lymph nodes including 9 mm left para-aortic lymph node. Recommend PET-CT for further evaluation.
[2025-07-31] MEDS: LIDOCAINE 1% (LOCAL ANESTH.) PF 5ml SDV ID PRN (12:05)
[2025-07-31] MEDS ORDERED: TPN PER PHARMACY 0 ML IV SCH (12:15)
--- NOTE | 2025-07-31 13:12 | DVHINCON2 ---
Date of service: Jul 31, 2025 Referring Physician Gamaliel Reason for Consultation Bowel Obstruction History of Present Illness 54 year old female with hx of sickle cell, HTN, DM admitted with bowel obstruction--recent dx of diverticulitis and has been on abx --imaging shows bowel obstruction at descending colon ---pt seen by surgery --currently npo -not passing gas or stools Past Medical History as above Past Surgical History denies Family History: Patient reports no known family medical history. Family History breast cancer in sister --no gi hx Social History No tobacco, etoh or drug abuse hx Allergies: Coded Allergies: NO KNOWN ALLERGIES (Unverified , 02/25/24) Home Meds Active Scripts Amlodipine Besylate (Amlodipine Besylate) 10 Mg Tab, 1 TAB PO DAILY, #30 TAB 5 R efills Prov:IVORY DUNCAN MD 02/25/24 Amlodipine Besylate (Amlodipine Besylate) 10 Mg Tab, 1 TAB PO DAILY, #30 TAB 5 Refills Prov:IVORY DUNCAN MD 02/25/24 Current Medications Current Medications Medications (Trade) Dose Ordered Sig/Latisha Route PRN Reason Start Time Stop Time Status Last Admin Ondansetron HCl (Zofran) 4 mg Q4HP PRN IV NAUSEA / VOMITING 07/30/25 23:30 Amlodipine Besylate (Norvasc Tablet) 10 mg DAILY PO 08/01/25 10:00 Atenolol (Tenormin Tablet) 25 mg BID PO 07/31/25 10:00 Sodium Chloride 1,000 ml @ 100 mls/hr Q10H IV 07/31/25 04:00 07/31/25 05:16 Ceftriaxone Sodium 50 ml @ 100 mls/hr DAILY@09 IV 08/01/25 09:00 Metronidazole 100 ml @ 100 mls/hr Q8HR IV 07/31/25 14:00 Ondansetron HCl (Zofran) 4 mg Q8HPRN PRN IV NAUSEA / VOMITING 07/31/25 02:15 Diagnostic Test (Pha) (Accu-Chek Comfort Curve T) 1 strip ACHS 07/31/25 07:00 07/31/25 11:49 Insulin Human Regular (InsuLIN R) ACHS SC 07/31/25 07:00 Dextrose 50 ml UD PRN IV Blood Sugar LESS THAN 60 07/31/25 02:15 Amino Acids 0 ml @ 0 mls/hr PER PHARMACY IV 07/31/25 12:15 Sodium Chloride (Saline Lock Ns) 10 ml QSHIFT@10,22 IV 07/31/25 22:00 UNV Review of Systems 12 point ROS negative other than hpi Vital Signs Vital Signs Date Time Temp Pulse Resp B/P (MAP) Pulse Ox O2 Delivery O2 Flow Rate FiO2 07/31/25 09:05 98.3 84 18 159/86 (110) 95 98.3 07/31/25 08:00 Room Air* 0 21 Physical Exam Gen: a/ox 4 HEENT:NCAT-EOMI -PERRLA -Op clear, NO JVD Heart: RRR Lungs: CTA bilaterally Abdomen: distended, decreased bowel sounds, Moderate TTP Ext: no c c e Labs/Diagnostic Data Labs Test 07/31/25 11:47 07/31/25 08:20 07/31/25 04:48 07/30/25 19:10 Range/Units POC Glucose 108 H 70-106 mg/dl Urine Color Light-yellow Yellow Urine Clarity Clear Clear Urine pH 5.5 5.0-9.0 Urine Specific [place] 1.015 1.001-1.035 Urine Protein 1+ H Negative Urine Ketones Negative Negative Urine Blood 1+ H Negative /uL Urine Nitrite Negative Negative Urine Bilirubin Negative Negative Urine Urobilinogen Normal Negative mg/dL Urine Leukocyte Esterase Trace Negative /uL Urine RBC 2 0 - 4 /hpf Urine Microscopic WBC 12 H 0-5 /HPF Urine Squamous Epithelial Cells Few <5 /hpf Urine Bacteria None seen None Seen /hpf Urine Hyaline Casts Mod 0 - 2 /lpf Urine Mucus Few None Seen Urine Glucose Normal Normal mg/dL Urine Opiates Screen Pos NEGATIVE Urine Fentanyl Screen Neg NEGATIVE Urine Barbiturates Screen Neg NEGATIVE Urine Phencyclidine Screen Neg NEGATIVE Urine Amphetamines Screen Neg NEGATIVE Urine Benzodiazepines Screen Neg NEGATIVE Urine Cocaine Screen Neg NEGATIVE Urine Cannabinoids Screen Neg NEGATIVE White Blood Count 5.9 # 4.4-10.8 10^3/uL Red Blood Count 4.15 4.0-5.20 10^6/uL Hemoglobin 8.3 L 12.2-16.2 g/dL Hematocrit 26.9 #L 36.0-46.0 % Mean Corpuscular Volume 64.8 L 80.0-100.0 fL Mean Corpuscular Hemoglobin 20.0 L 28.0-32.0 pg Mean Corpuscular Hemoglobin Concent 30.9 L 32.0-36.0 g/dL Red Cell Distribution Width 22.0 H 11.8-14.3 % Platelet Count 377 140-450 10^3/uL Mean Platelet Volume 7.0 6.9-10.8 fL Neutrophils (%) (Auto) 68.4 37.0-80.0 % Lymphocytes (%) (Auto) 21.9 10.0-50.0 % Monocytes (%) (Auto) 8.6 0.0-12.0 % Eosinophils (%) (Auto) 0.3 0.0-7.0 % Basophils (%) (Auto) 0.8 0.0-2.0 % Neutrophils # (Auto) 4.0 1.6-8.6 10 ^3/uL Lymphocytes # (Auto) 1.3 0.4-5.4 10 ^3/uL Monocytes # (Auto) 0.5 0-1.3 10 ^3/uL Eosinophils # (Auto) 0 0-0.8 10 ^3/uL Basophils # (Auto) 0 0-0.2 10 ^3/uL Nucleated Red Blood Cells 0.1 % Erythrocyte Sedimentation Rate 37 H 0-20 mm/hr Prothrombin Time 11.2 9.3-11.8 sec Prothrombin Time INR 1.06 0.9-1.15 Activated Partial Thromboplast Time 23.9 L 24.5-34.5 SEC Sodium Level 142 136-145 mmol/L Potassium Level 3.1 L 3.5-5.1 mmol/L Chloride Level 106 98-107 mmol/L Carbon Dioxide Level 24 20-31 mmol/L Anion Gap 12 5-15 Blood Urea Nitrogen 9 9-23 mg/dL Creatinine 1.00 0.550-1.02 mg/dL Glomerular Filtration Rate Calc 66 >90 mL/min BUN/Creatinine Ratio 9.0 L 10.0-20.0 Serum Glucose 106 74-106 mg/dL Hemoglobin A1c 5.7 <5.7 % A1C Calcium Level 9.1 8.7-10.4 mg/dL Phosphorus Level 3.9 2.4-5.1 mg/dL Magnesium Level 1.9 1.6-2.6 mg/dL Iron Level 22 L 50-170 ug/dL Total Iron Binding Capacity 250 250-425 ug/dL Percent Iron Saturation 8.8 L 15-50 % Ferritin 58.0 10-291 ng/mL Total Bilirubin 0.4 0.2-1.0 mg/dL Aspartate Amino Transferase (AST) 14 13-40 U/L Alanine Aminotransferase (ALT) < 9 7-40 U/L Alkaline Phosphatase 51 46-116 U/L C-Reactive Protein High Sensitivity 4.79 H <1.0 mg/dL Total Protein 7.5 5.7-8.2 g/dL Albumin 3.8 3.2-4.8 g/dL Vitamin D 25-Hydroxy 40.1 30.0-100 ng/mL Lipase 30 12-53 U/L IMPRESSION: Findings suspicious for descending colonic malignancy with resultant partial obstruction. Recommend colonoscopy. Surrounding inflammatory changes and adjacent nodular soft tissue thickening may represent extraluminal extension of disease/malignancy versus superimposed colitis. Indeterminate borderline enlarged retroperitoneal lymph nodes including 9 mm left para-aortic lymph node. Recommend PET-CT for further evaluation. Assessment 1.bowel obstruction 2.anemia 3.mass/vs other at descending colon with obstruction findings suspicious for malignancy Problems(with codes): (1) Small bowel obstruction (2) Hypertension (3) Microcytic anemia (4) Intractable abdominal pain Plan/Recommendation 1.pt cant be prepped appropriately for colo either with golytely or with enemas--would recommend surgery /colostomy and oncology referral if surgery confirms cancer 2.cont abx 3.keep npo JOE CORONEL MD Jul 31, 2025 13:12
[2025-07-31] MEDS ORDERED: MORPHINE SULFATE INJ 2 MG/ml SYRG IV PRN (14:30)
[2025-07-31] MEDS ORDERED: MORPHINE SULFATE 4 MG/ML SYR/VIAL IV PRN (18:00)
[2025-07-31] MEDS: ONDANSETRON HCL 4 MG/2 ML VIAL IV PRN (18:03)
[2025-07-31] MEDS: MORPHINE SULFATE 4 MG/ML SYR/VIAL IV PRN (18:03)
--- NOTE | 2025-07-31 18:05 | DVHPN2 ---
Subjective Patient is complaining of abdominal pain currently has a NG tube. Patient did say that she lost about 10 lb in last few weeks because of loss of appetite. CT abdomen and pelvis was done which shows evidence of possibly colonic obstruction with a distal colonic mass rule out malignancy. 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 Medications Current Medications Medications Dose Ordered Sig/Latisha Route Start Time Stop Time Status Last Admin Dose Admin Amlodipine Besylate 10 mg DAILY PO 08/01/25 10:00 Atenolol 25 mg BID PO 07/31/25 10:00 Sodium Chloride 1,000 ml @ 100 mls/hr Q10H IV 07/31/25 04:00 07/31/25 13:32 100 MLS/HR Ceftriaxone Sodium 50 ml @ 100 mls/hr DAILY@09 IV 08/01/25 09:00 Metronidazole 100 ml @ 100 mls/hr Q8HR IV 07/31/25 14:00 07/31/25 14:21 100 MLS/HR Ondansetron HCl 4 mg Q8HPRN PRN IV 07/31/25 02:15 Diagnostic Test (Pha) 1 strip ACHS 07/31/25 07:00 07/31/25 17:20 1 STRIP Insulin Human Regular ACHS SC 07/31/25 07:00 Dextrose 50 ml UD PRN IV 07/31/25 02:15 Amino Acids 0 ml @ 0 mls/hr PER PHARMACY IV 07/31/25 12:15 Lidocaine HCl 0.5 ml ONCE PRN ID 07/31/25 15:15 07/31/25 12:05 0.5 ML Sodium Chloride 10 ml QSHIFT@10,22 IV 07/31/25 22:00 Fat Emulsion Intravenous 50 ml/ Potassium Acetate 60 meq/Potassium Phosphate 10 meq/ Magnesium Sulfate 8 meq/ Multivitamins 10 ml/Chromium/ Copper/Manganese/ Zinc 1 ml/Amino Acids/Dextrose/ Purified Water 1,095.2727 ml @ 46 mls/hr [id number] IV 07/31/25 22:00 08/01/25 21:59 Morphine Sulfate 2 mg Q4HPRN PRN IV 07/31/25 17:50 Laboratory Results Laboratory Tests 07/31/25 04:48 Chemistry Test 07/30/25 19:10 07/31/25 04:48 Albumin 4.4 g/dL (3.2-4.8) 3.8 g/dL (3.2-4.8) Calcium Level 9.9 mg/dL (8.7-10.4) 9.1 mg/dL (8.7-10.4) Total Protein 8.7 g/dL (5.7-8.2) H 7.5 g/dL (5.7-8.2) Magnesium Level 1.9 mg/dL (1.6-2.6) Phosphorus Level 3.9 mg/dL (2.4-5.1) Coagulation Test 07/31/25 04:48 Prothrombin Time 11.2 sec (9.3-11.8) Prothrombin Time INR 1.06 (0.9-1.15) Activated Partial Thromboplast Time 23.9 SEC (24.5-34.5) L Lipid panel Test 07/30/25 19:10 Lipase 30 U/L (12-53) LFT Test 07/30/25 19:10 07/31/25 04:48 Alanine Aminotransferase (ALT) < 9 U/L (7-40) < 9 U/L (7-40) Alkaline Phosphatase 58 U/L (46-116) 51 U/L (46-116) Aspartate Amino Transferase (AST) 17 U/L (13-40) 14 U/L (13-40) Total Bilirubin 0.6 mg/dL (0.2-1.0) 0.4 mg/dL (0.2-1.0) HgA1c, TSH Test 07/31/25 04:48 Hemoglobin A1c 5.7 % A1C (<5.7) Urinalysis Test 07/31/25 08:20 Urine Color Light-yellow (Yellow) Urine Clarity Clear (Clear) Urine pH 5.5 (5.0-9.0) Urine Specific [place] 1.015 (1.001-1.035) Urine Protein 1+ (Negative) H Urine Ketones Negative (Negative) Urine Blood 1+ /uL (Negative) H Urine Nitrite Negative (Negative) Urine Bilirubin Negative (Negative) Urine Urobilinogen Normal mg/dL (Negative) Urine Leukocyte Esterase Trace /uL (Negative) Urine RBC 2 /hpf (0 - 4) Urine Microscopic WBC 12 /HPF (0-5) H Urine Squamous Epithelial Cells Few /hpf (<5) Urine Bacteria None seen /hpf (None Seen) Urine Hyaline Casts Mod /lpf (0 - 2) Urine Mucus Few (None Seen) Urine Glucose Normal mg/dL (Normal) Assessment/Plan Assessment/Plan 54-year-old female with a known history of sickle cell anemia, hypertension, diabetes mellitus type 2, recently diagnosed of sigmoid colon diverticulitis with microperforatin was hospitalized at [facility] was given IV antibiotics which was switched to p.o. antibiotics presented to the hospital with a worsening pain found to have 1. Intractable abdominal pain 2. Partial descending colon obstruction with a suspected mass may need exploratory laparotomy rather than colonoscopy 3. Recent history of diverticulitis status post hospitalization at [facility] currently on p.o. antibiotics 4. Hypertension 5. Diabetes mellitus type 2 6. Sickle cell anemia -keep NPO NG tube, IV fluids IV antibiotics, general surgery and GI follow up. 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
[2025-07-31] MEDS: TPN PER PHARMACY IV NR (21:11)
[2025-07-31] MEDS: SODIUM CHLOR 0.9% PF (SALINE LOCK) 10ML VIAL/SYR IV SCH (21:12)
[2025-07-31] MEDS: LABETALOL HCL 20 MG/4 ML VL IV ONE (22:43)
[2025-08-01] VITALS (21 sets, daily range): BP systolic 104–174; BP diastolic 59–101; PULSE 73–85; RESP 9–23; TEMP 97.4–99; O2SAT 89–100
[2025-08-01] MEDS: diphenhydrAMINE HCL 50 MG/1 ML VL IV ONE (01:24)
[2025-08-01] MEDS: diphenhydrAMINE HCL 50 MG/1 ML VL ONE (01:24)
[2025-08-01 06:21] LABS: Alanine Aminotransferase 10 U/L (7-40); Albumin 4.2 g/dL (3.2-4.8); Alkaline Phosphatase 56 U/L (46-116); BUN/Creatinine Ratio 9.1 (10.0-20.0); Bilirubin, Total 0.3 mg/dL (0.2-1.0); Calcium 9.9 mg/dL (8.7-10.4); Carbon Dioxide 25 mmol/L (20-31); Magnesium 2.3 mg/dL (1.6-2.6); Triglycerides 89 mg/dL (< 150)
[2025-08-01 06:26] LABS: Blood Urea Nitrogen 9 mg/dL (9-23); Glucose 195 mg/dL (74-106); Total Protein 8.5 g/dL (5.7-8.2)
[2025-08-01 06:43] LABS: Anion Gap 11 (5-15); Potassium 3.7 mmol/L (3.5-5.1); Sodium 144 mmol/L (136-145)
[2025-08-01 06:45] LABS: Chloride 108 mmol/L (98-107)
[2025-08-01] MEDS: LABETALOL HCL 20 MG/4 ML VL IV ONE (06:49)
--- NOTE | 2025-08-01 08:53 | DVH ---
AP portable chest Comparison exam: 07/31/2025 CLINICAL INDICATION: NG tube placement verification FINDINGS: Nasogastric tube tip is in the stomach. PICC line catheter tip at the atriocaval junction. Heart size prominent. No infiltrates or effusions IMPRESSION: 1. NG tube tip in the stomach.
[2025-08-01] MEDS ORDERED: HYDROmorphone HCL 2 MG/ML VL/or syr ONE (09:20)
[2025-08-01] MEDS ORDERED: fentaNYL CITRATE 100 MCG/2 ML VL ONE ×3 (09:21→11:12)
[2025-08-01] MEDS ORDERED: MIDAZOLAM HCL 2MG/2ML 2ml VIAL (1mg/ml) ONE (09:21)
[2025-08-01] MEDS: ceFAZolin 2 GM/D5W50ml 50 ML IV ONE (09:31)
--- NOTE | 2025-08-01 09:44 | DVH ---
EXAM: US US GUIDED VASCULAR ACCESS Date: 07/31/2025 11:47 AM CLINICAL HISTORY: PICC LINE INSERTION COMPARISON: None FINDINGS: Targeted sonographic evaluation of the basilic vein was obtained utilizing grayscale and color Doppler imaging. IMPRESSION: Sonographic assistance for central line placement. Please refer to procedural report for detailed findings.
[2025-08-01] MEDS ORDERED: ETOMIDATE (2MG/ML) 20ML VIAL IV ONE (10:00)
[2025-08-01] MEDS ORDERED: POTASSIUM PHOSPHATE 22 MEQ in SODIUM CHL 0.9% 100 ML IV ONE (10:00)
[2025-08-01] MEDS ORDERED: HYDROmorphone HCL 2 MG/ML VL/or syr IV PRN (12:00)
[2025-08-01] MEDS ORDERED: hydrALAZINE HCL 20 MG/ML VL IV PRN (12:00)
[2025-08-01] MEDS ORDERED: ONDANSETRON HCL 4 MG/2 ML VIAL IV PRN (12:00)
[2025-08-01] MEDS ORDERED: MIDAZOLAM HCL 2MG/2ML 2ml VIAL (1mg/ml) IV PRN (12:00)
[2025-08-01] MEDS ORDERED: MORPHINE SULFATE 4 MG/ML SYR/VIAL IV PRN (12:00)
--- NOTE | 2025-08-01 12:18 | DVH ---
Date: 08/01/2025 11:45 AM Examination: XY KUB ABDOMEN SINGLE VIEW History: CONFRIM SURGICAL COUNT COMPARISON: None TECHNIQUE: Frontal views of the abdomen was obtained. FINDINGS: 2 films submitted. There appears to be a peritoneal catheter present within the pelvis. I do not see any metallic foreign bodies. IMPRESSION: 1. Peritoneal catheter present. No definite foreign body seen.
[2025-08-01] MEDS ORDERED: SUGAMMADEX 200mg/2ml Vial (100MG/ML) IV ONE (12:29)
--- NOTE | 2025-08-01 13:01 | DVH ---
EXAM: XY KUB ABDOMEN SINGLE VIEW HISTORY:: MISSING INSTRUMENT COMPARISON: XY KUB ABDOMEN SINGLE VIEW on DOS: 08/01/25 TECHNIQUE:: Supine view of the abdomen FINDINGS/IMPRESSION: Postsurgical changes to the abdomen. Catheter projecting of the pelvis. Gas distention of multiple bowel loops. There is no evidence for pneumoperitoneum. No abnormal calcifications noted. Enteric tube extending into the proximal stomach. Gas within the rectum. In regards to the clinical question, multiple small linear radiopaque densitiesaa of the left hemiabdomen, which may be within postoperative limits and postsurgical however correlate with surgical history.
--- NOTE | 2025-08-01 13:46 | DVHOP2 ---
Operative Report - 2 Report Details Date: 08/01/25 Preop Diagnosis: High-grade obstruction of the descending colon from likely a mass Postop Diagnosis: Large mid descending colon mass causing obstruction Surgeon: Cecilia Adamson MD Yarn Inspector: None Anesthesiologist: Dr. Viramontes Anesthesia: General Drains: 15 Lithuanian Sandeep drain Consent: The surgery and its risks including but not limited to infection, bleeding requiring possible blood transfusion with the risk of hepatitis or HIV infection, possible perioperative ND or stroke were explained to the patient. All questions were answered to her satisfaction. She expressed verbal understanding and wished to proceed with the surgery. Complications: There was a missing Flaca instrument at the end of surgery. X-ray was performed which did not show any obvious foreign bodies except for the peritoneal drain that was placed Estimated Blood Loss: 200 mL Fluids: 2800 mL of crystalloid plus 1 unit PRBC Name of Procedure Performed Exploratory laparotomy with partial left colectomy with colostomy and appendectomy Procedure Details Procedure Details: After induction of general anesthesia, a Robin catheter was placed by the OR nursing staff. Patient's abdomen was then prepped and draped in standard surgical fashion. A midline incision was then made and this was taken through the abdominal wall down to the fascia which was opened in midline. Peritoneum was then divided and immediately there was diffuse small intestine that was protruded through the incision. Incision was then fully extended. There was a small serosal tear in the cecum which was very dilated. This was closed using running 3-0 Vicryl sutures. The small intestine was then decompressed proximally into the stomach where an NG tube tip was palpated and the luminal contents were aspirated away. This decompress the small intestine. However the cecum, ascending colon and transverse colon up to the mid descending colon was very dilated and is somewhat difficult to expose the left side of the abdomen. Palpation of the descending colon revealed a large fixed lesion in the mid descending colon extending to the wall. In order to decompress the colon for better visualization, a small opening was made near the base of the appendix and a suction catheter was then placed through this to decompress the colon. CHRISTIAN stapler was then used to staple across the base of the appendix and remove the appendix which was sent off to pathology. Once the colon was decompressed, this made the visualization and exposure of the descending colon much easier. The small intestine was then packed into the right upper and lower quadrants. The descending colon and the sigmoid colon was then mobilized medially by taking down the white line of Toldt. However where the mass was located in the mid descending colon there was diffuse in inflammatory changes with a appeared to be the mass extending through the peritoneum into the abdominal wall. Splenic flexure had to be taken down and distal descending colon was then mobilized inferiorly and medially. CHRISTIAN stapler was used to staple and divide the distal transverse colon. The transverse colon was very tortuous and there was more than adequate: Left over to easily create a colostomy in the left upper quadrant without tension. The sigmoid colon was also divided using a CHRISTIAN stapler. The mesentery of the descending and sigmoid colon was then divided using a LigaSure impact device. In order to attempt a negative margin of this suspected malignant lesion, the peritoneum was scored lateral to the mass and into the musculature of the abdominal wall to completely resect the mass. The descending colon and sigmoid colon was then removed and sent off to pathology. The area where the mass was invading into the peritoneum was then marked with multiple Endoclips for possible future adjuvant treatment. Abdominal cavity was then irrigated with 2 L sterile water. A 15 Lithuanian Sandeep drain was placed into the pelvis and ran along the left gutter and brought out through a stab incision in the right lower quadrant and secured to the skin using 3-0 nylon sutures. A small circular incision was made in the left side of the abdomen for the colostomy. Incision extended onto the fascia where a cruciate incision was made big enough to fit to my fingers easily. The stump of the transverse colon was then easily placed through the opening without strangulation. Midline fascia was then closed using running looped 0 PDS sutures. Surgical site was irrigated and skin incision was then closed using rene. The colostomy was then matured by dividing the in opening the staple line revealing a viable mucosa. This was matured using 2-0 and 3-0 Vicryl sutures. There was no narrowing at the level of the fascia. Surgical site was cleaned and dried and dressings were applied. Sponge, needle, instrument count at the end of the case were reported to be correct by the nursing staff. Patient tolerated procedure well and was awakened, extubated and transferred to recovery in guarded condition. Specimen: Left colon and appendix Condition Guarded Disposition Still a Patient CECILIA ADAMSON MD Aug 01, 2025 13:46
[2025-08-01 14:08] LABS: Potassium 5.0 mmol/L (3.5-5.1); Sodium 145 mmol/L (136-145)
[2025-08-01 14:09] LABS: Anion Gap 6 (5-15); Calcium 8.8 mg/dL (8.7-10.4); Carbon Dioxide 25 mmol/L (20-31)
[2025-08-01 14:14] LABS: BUN/Creatinine Ratio 6.4 (10.0-20.0); Blood Urea Nitrogen 9 mg/dL (9-23)
[2025-08-01 14:22] LABS: Chloride 114 mmol/L (98-107); Glucose 173 mg/dL (74-106)
[2025-08-01 14:29] LABS: Hematocrit 34.2 % (36.0-46.0); Hemoglobin 10.2 g/dL (12.2-16.2); Mean Corpuscular Hemoglobin 20.2 pg (28.0-32.0); Mean Corpuscular Volume 67.6 fL (80.0-100.0); Nucleated Red Blood Cells % 0.1 %
[2025-08-01] MEDS: SUCCINYLCHOLINE CHLORIDE 20 MG/ML 10ML VIAL IV ONE (15:08)
--- NOTE | 2025-08-01 16:22 | DVHPN2 ---
Subjective Patient is status post exploratory laparotomy with a partial section of the colon, colostomy. Changes from previous H/P or p: No Changes Objective Vitals Vital Signs Date Time Temp Pulse Resp B/P (MAP) Pulse Ox O2 Delivery O2 Flow Rate FiO2 08/01/25 16:00 97.7 74 15 127/76 (93) 99 97.7 08/01/25 13:37 Nasal Cannula 3.0 08/01/25 13:37 98 Intake/Output Intake and Output 08/01/25 07:00 Intake Total 0 ml Balance 0 ml Intake Oral 0 ml # Voids 4 Exam HEENT pupils are reactive Neck is supple CV is S1-S2 regular rate and rhythm Diminished breath sounds bases GI positive bowel sounds sluggish nondistended nontender Extremities no edema WAITER/WAITRESS BUFFET no motor deficit Medications Current Medications Medications Dose Ordered Sig/Latisha Route Start Time Stop Time Status Last Admin Dose Admin Amlodipine Besylate 10 mg DAILY PO 08/01/25 10:00 Atenolol 25 mg BID PO 07/31/25 10:00 Sodium Chloride 1,000 ml @ 100 mls/hr Q10H IV 07/31/25 04:00 08/01/25 08:42 100 MLS/HR Ceftriaxone Sodium 50 ml @ 100 mls/hr DAILY@09 IV 08/01/25 09:00 08/01/25 08:36 100 MLS/HR Metronidazole 100 ml @ 100 mls/hr Q8HR IV 07/31/25 14:00 08/01/25 15:00 100 MLS/HR Ondansetron HCl 4 mg Q8HPRN PRN IV 07/31/25 02:15 08/01/25 07:06 4 MG Diagnostic Test (Pha) 1 strip ACHS 07/31/25 07:00 08/01/25 23:59 08/01/25 06:50 1 STRIP Insulin Human Regular ACHS SC 07/31/25 07:00 08/01/25 23:59 08/01/25 06:50 3 UNITS Dextrose 50 ml UD PRN IV 07/31/25 02:15 08/01/25 21:59 Amino Acids 0 ml @ 0 mls/hr PER PHARMACY IV 07/31/25 12:15 Lidocaine HCl 0.5 ml ONCE PRN ID 07/31/25 15:15 07/31/25 12:05 0.5 ML Sodium Chloride 10 ml QSHIFT@10,22 IV 07/31/25 22:00 08/01/25 09:50 10 ML Fat Emulsion Intravenous 50 ml/ Potassium Acetate 60 meq/Potassium Phosphate 10 meq/ Magnesium Sulfate 8 meq/ Multivitamins 10 ml/Chromium/ Copper/Manganese/ Zinc 1 ml/Amino Acids/Dextrose/ Purified Water 1,095.2727 ml @ 46 mls/hr [id number] IV 07/31/25 22:00 08/01/25 21:59 07/31/25 21:11 46 MLS/HR Morphine Sulfate 2 mg Q4HPRN PRN IV 07/31/25 17:50 07/31/25 18:03 2 MG Fat Emulsion Intravenous 100 ml/Potassium Acetate 40 meq/ Potassium Phosphate 11 meq/ Multivitamins 10 ml/Chromium/ Copper/Manganese/ Zinc 1 ml/Amino Acids/Dextrose/ Purified Water 1,233.5 ml @ 51 mls/hr [id number] IV 08/01/25 22:00 08/02/25 21:59 Diagnostic Test (Pha) 1 strip Q6HR 08/02/25 00:00 Insulin Human Regular FOLLOW SLIDING SCALE Q6HR SC 08/02/25 00:00 Dextrose 50 ml UD IV 08/01/25 22:00 Laboratory Results Laboratory Tests 08/01/25 13:43 Chemistry Test 08/01/25 04:50 08/01/25 13:43 Albumin 4.2 g/dL (3.2-4.8) Calcium Level 9.9 mg/dL (8.7-10.4) 8.8 mg/dL (8.7-10.4) Magnesium Level 2.3 mg/dL (1.6-2.6) Phosphorus Level 2.3 mg/dL (2.4-5.1) L Total Protein 8.5 g/dL (5.7-8.2) H Lipid panel Test 08/01/25 04:50 Triglycerides Level 89 mg/dL (< 150) LFT Test 08/01/25 04:50 Alanine Aminotransferase (ALT) 10 U/L (7-40) Alkaline Phosphatase 56 U/L (46-116) Aspartate Amino Transferase (AST) 16 U/L (13-40) Total Bilirubin 0.3 mg/dL (0.2-1.0) Urinalysis Test 07/31/25 08:20 Urine Color Light-yellow (Yellow) Urine Clarity Clear (Clear) Urine pH 5.5 (5.0-9.0) Urine Specific [place] 1.015 (1.001-1.035) Urine Protein 1+ (Negative) H Urine Ketones Negative (Negative) Urine Blood 1+ /uL (Negative) H Urine Nitrite Negative (Negative) Urine Bilirubin Negative (Negative) Urine Urobilinogen Normal mg/dL (Negative) Urine Leukocyte Esterase Trace /uL (Negative) Urine RBC 2 /hpf (0 - 4) Urine Microscopic WBC 12 /HPF (0-5) H Urine Squamous Epithelial Cells Few /hpf (<5) Urine Bacteria None seen /hpf (None Seen) Urine Hyaline Casts Mod /lpf (0 - 2) Urine Mucus Few (None Seen) Urine Glucose Normal mg/dL (Normal) Microbiology Microbiology Date/Time Source Procedure Growth Status 07/31/25 15:00 Nose MRSA Screen - Final Complete 07/31/25 09:30 Blood Blood Culture - Preliminary NO GROWTH AFTER 24 HOURS OF INCUBATION. Resulted 07/31/25 08:20 Voided Urine Urine Culture - Preliminary Resulted Assessment/Plan Assessment/Plan 54-year-old female with a known history of sickle cell anemia, hypertension, diabetes mellitus type 2, recently diagnosed of sigmoid colon diverticulitis with microperforatin was hospitalized at [facility] was given IV antibiotics which was switched to p.o. antibiotics presented to the hospital with a worsening pain found to have 1. Intractable abdominal pain 2. High-grade descending colon obstruction with a suspected mass status postExploratory laparotomy with partial left colectomy with colostomy and appendectomy. 3. Recent history of diverticulitis status post hospitalization at [facility] currently on p.o. antibiotics 4. Hypertension 5. Diabetes mellitus type 2 6. Sickle cell anemia -continue colostomy care, may consider p.o. diet in next 24 hours if okay with surgery -daughters were updated at bedside regarding the descending colon mass, follow up on the biopsy as an outpatient. Plan discussed with: Patient, Daughter My Orders Orders - LEXI LALA MD Procedure Category Date Status Time Morphine Sulfate PHA 07/31/25 In Process Injection 17:50 Chest Xray 1 View XY 08/01/25 Resulted 08:15 Date of Service: Aug 01, 2025 Billing Provider: LEXI LALA MD Common Visit Codes: [id number] INP/OBS CARE(HIGH) LEXI LALA MD Aug 01, 2025 16:22
[2025-08-01 18:04] LABS: Urine Amorphous Crystal FEW /hpf (None Seen); Urine Protein, UAD 1+ (Negative)
[2025-08-01] MEDS ORDERED: DEXTROSE (50%) 50ML SYRG IV SCH (22:00)
[2025-08-01] MEDS: TPN PER PHARMACY IV NR (22:27)
[2025-08-02] VITALS (24 sets, daily range): BP systolic 102–171; BP diastolic 51–115; PULSE 72–114; RESP 17–34; TEMP 98–99.8; O2SAT 93–97
[2025-08-02] MEDS: InsuLIN REG 1unit/0.01ml Soln (100units/ml) SC SCH (00:11)
[2025-08-02] MEDS: ACCU-CHEK COMFORT CURVE STRIP VI SCH (00:11)
[2025-08-02 06:24] LABS: Nucleated Red Blood Cells % 0.0 %
[2025-08-02 06:28] LABS: Hematocrit 28.8 % (36.0-46.0); Hemoglobin 9.0 g/dL (12.2-16.2); Mean Corpuscular Hemoglobin 20.6 pg (28.0-32.0); Mean Corpuscular Volume 66.3 fL (80.0-100.0)
[2025-08-02 06:44] LABS: Alanine Aminotransferase 10 U/L (7-40); Anion Gap 8 (5-15); BUN/Creatinine Ratio 14.8 (10.0-20.0); Blood Urea Nitrogen 16 mg/dL (9-23); Calcium 8.8 mg/dL (8.7-10.4); Carbon Dioxide 28 mmol/L (20-31); Magnesium 1.9 mg/dL (1.6-2.6); Potassium 4.5 mmol/L (3.5-5.1); Total Protein 5.8 g/dL (5.7-8.2)
[2025-08-02 06:45] LABS: Bilirubin, Total 0.3 mg/dL (0.2-1.0)
[2025-08-02 06:47] LABS: Albumin 3.0 g/dL (3.2-4.8); Alkaline Phosphatase 40 U/L (46-116); Chloride 111 mmol/L (98-107); Glucose 173 mg/dL (74-106); Sodium 147 mmol/L (136-145)
[2025-08-02] MEDS: MORPHINE SULFATE 4 MG/ML SYR/VIAL IV ONE (06:55)
[2025-08-02] MEDS: hydrALAZINE HCL 20 MG/ML VL IV PRN (09:06)
--- NOTE | 2025-08-02 10:12 | ECG ---
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
[2025-08-02] MEDS: MORPHINE SULFATE 4 MG/ML SYR/VIAL IV PRN (10:43)
--- NOTE | 2025-08-02 10:43 | DVHPN2 ---
Progress Note - Dictate Date Seen: Aug 02, 2025 Medical Necessity Reason Pt with a Central, PICC or Fol: Yes Subjective E: no major events o/n. c/o min incisional pain. vital signs Vital Sign Date Time Temp Pulse Resp B/P (MAP) Pulse Ox O2 Delivery O2 Flow Rate FiO2 08/02/25 09:06 169/82 08/02/25 06:55 83 28 08/02/25 06:00 95 08/02/25 04:01 98.3 98.3 08/01/25 20:00 Room Air* 0 21 Total Intake and Output 08/01/25 08/01/25 08/02/25 15:00 23:00 07:00 Intake Total 246 ml 1273 ml 957 ml Output Total 400 ml 190 ml 2250 ml Balance -154 ml 1083 ml -1293 ml medications Current Medications Medications Dose Ordered Sig/Latisha Route Start Time Stop Time Status Last Admin Dose Admin Amlodipine Besylate 10 mg DAILY PO 08/01/25 10:00 Atenolol 25 mg BID PO 07/31/25 10:00 Sodium Chloride 1,000 ml @ 100 mls/hr Q10H IV 07/31/25 04:00 08/02/25 06:00 100 MLS/HR Ceftriaxone Sodium 50 ml @ 100 mls/hr DAILY@09 IV 08/01/25 09:00 08/02/25 09:06 100 MLS/HR Metronidazole 100 ml @ 100 mls/hr Q8HR IV 07/31/25 14:00 08/02/25 06:54 100 MLS/HR Ondansetron HCl 4 mg Q8HPRN PRN IV 07/31/25 02:15 08/01/25 07:06 4 MG Amino Acids 0 ml @ 0 mls/hr PER PHARMACY IV 07/31/25 12:15 Lidocaine HCl 0.5 ml ONCE PRN ID 07/31/25 15:15 07/31/25 12:05 0.5 ML Sodium Chloride 10 ml QSHIFT@ IV 07/31/25 22:00 08/02/25 09:07 10 ML Morphine Sulfate 2 mg Q4HPRN PRN IV 07/31/25 17:50 07/31/25 18:03 2 MG Fat Emulsion Intravenous 100 ml/Potassium Acetate 40 meq/ Potassium Phosphate 11 meq/ Multivitamins 10 ml/Chromium/ Copper/Manganese/ Zinc 1 ml/Amino Acids/Dextrose/ Purified Water 1,233.5 ml @ 51 mls/hr [id number] IV 08/01/25 22:00 08/02/25 21:59 08/01/25 22:27 51 MLS/HR Diagnostic Test (Pha) 1 strip Q6HR 08/02/25 00:00 08/02/25 06:00 1 STRIP Insulin Human Regular FOLLOW SLIDING SCALE Q6HR SC 08/02/25 00:00 08/02/25 06:54 4 UNITS Dextrose 50 ml UD IV 08/01/25 22:00 Hydralazine HCl 10 mg Q4HPRN PRN IV 08/02/25 08:45 08/02/25 09:06 10 MG Fat Emulsion Intravenous 150 ml/Potassium Phosphate 22 meq/ Magnesium Sulfate 4 meq/ Multivitamins 10 ml/Chromium/ Copper/Manganese/ Zinc 1 ml/Amino Acids/Dextrose/ Purified Water 1,367 ml @ 57 mls/hr [id number] IV 08/02/25 22:00 08/03/25 21:59 Morphine Sulfate 1 mg Q4HP PRN IV 08/02/25 10:45 objective GEN: NAD ABD: surgical dressings clean and dry. drain 50 mL last night. 90 mL serosang today. UOP 900 mL laboratory and microbiology Laboratory Tests 08/02/25 05:35 Test 08/02/25 05:35 Range/Units Serum Glucose 173 H 74-106 mg/dL Assessment/Plan A: 1. 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 cont TPN 2. up to chair. Dietary Evaluation Review Comments: TPN to meet her needs @77-96g protein, 1600-1920kcal kcal Expected Outcomes/Goals: recover from bowel obstruction Plan discussed with: Patient CECILIA HILLS MD Aug 02, 2025 10:43
[2025-08-02] MEDS: LACTATED RINGER'S 1,000 ML IV SCH (11:15)
--- NOTE | 2025-08-02 17:04 | DVHPN2 ---
Subjective Patient continues to report having dry mouth and mild abdominal pain. Reviewed: Care Plan, H&P, Labs, Medications Changes from previous H/P or p: No Changes General: Per HPI Objective Vitals Vital Signs Date Time Temp Pulse Resp B/P (MAP) Pulse Ox O2 Delivery O2 Flow Rate FiO2 08/02/25 15:41 98.8 114 30 143/84 (103) 93 98.8 08/02/25 08:00 Room Air* 0 21 Intake/Output Intake and Output 08/02/25 07:00 Intake Total 2627 ml Output Total 2840 ml Balance -213 ml Intake Oral 0 ml IV Total 2627 ml Output Urine Total 1350 ml Gastric Drainage Total 1250 ml Drainage Total 240 ml General Appearance: Alert, Oriented X3, Cooperative, mild distress HEENT: Atraumatic, PERRLA Lungs: Clear to auscultation, Normal air movement Cardiovascular: Normal S1, Normal S2 Abdomen: Normal bowel sounds, Soft, No tenderness, No hepatospenomegaly, No masses Genitourinary: No Apparent Abnormalities Musculoskeletal: Normal sensory function, Normal motor function Skin: Dry, Intact Psych/Mental Status: Mental status NL, Mood NL Medications Current Medications Medications Dose Ordered Sig/Latisha Route Start Time Stop Time Status Last Admin Dose Admin Amlodipine Besylate 10 mg DAILY PO 08/01/25 10:00 Atenolol 25 mg BID PO 07/31/25 10:00 Ceftriaxone Sodium 50 ml @ 100 mls/hr DAILY@09 IV 08/01/25 09:00 08/02/25 09:06 100 MLS/HR Metronidazole 100 ml @ 100 mls/hr Q8HR IV 07/31/25 14:00 08/02/25 14:56 100 MLS/HR Ondansetron HCl 4 mg Q8HPRN PRN IV 07/31/25 02:15 08/01/25 07:06 4 MG Amino Acids 0 ml @ 0 mls/hr PER PHARMACY IV 07/31/25 12:15 Lidocaine HCl 0.5 ml ONCE PRN ID 07/31/25 15:15 07/31/25 12:05 0.5 ML Sodium Chloride 10 ml QSHIFT@10,22 IV 07/31/25 22:00 08/02/25 09:07 10 ML Morphine Sulfate 2 mg Q4HPRN PRN IV 07/31/25 17:50 07/31/25 18:03 2 MG Fat Emulsion Intravenous 100 ml/Potassium Acetate 40 meq/ Potassium Phosphate 11 meq/ Multivitamins 10 ml/Chromium/ Copper/Manganese/ Zinc 1 ml/Amino Acids/Dextrose/ Purified Water 1,233.5 ml @ 51 mls/hr [id number] IV 08/01/25 22:00 08/02/25 21:59 08/01/25 22:27 51 MLS/HR Diagnostic Test (Pha) 1 strip Q6HR 08/02/25 00:00 08/02/25 11:52 1 STRIP Insulin Human Regular FOLLOW SLIDING SCALE Q6HR SC 08/02/25 00:00 08/02/25 12:04 2 UNITS Dextrose 50 ml UD IV 08/01/25 22:00 Hydralazine HCl 10 mg Q4HPRN PRN IV 08/02/25 08:45 08/02/25 09:06 10 MG Fat Emulsion Intravenous 150 ml/Potassium Phosphate 22 meq/ Magnesium Sulfate 4 meq/ Multivitamins 10 ml/Chromium/ Copper/Manganese/ Zinc 1 ml/Amino Acids/Dextrose/ Purified Water 1,367 ml @ 57 mls/hr [id number] IV 08/02/25 22:00 08/03/25 21:59 Morphine Sulfate 1 mg Q4HP PRN IV 08/02/25 10:45 08/02/25 10:43 1 MG Lactated Ringer's 1,000 ml @ 50 mls/hr Q20H IV 08/02/25 10:45 08/02/25 11:15 50 MLS/HR Laboratory Results Laboratory Tests 08/02/25 05:35 Chemistry Test 08/02/25 05:35 Albumin 3.0 g/dL (3.2-4.8) L Calcium Level 8.8 mg/dL (8.7-10.4) Magnesium Level 1.9 mg/dL (1.6-2.6) Phosphorus Level 1.9 mg/dL (2.4-5.1) L Total Protein 5.8 g/dL (5.7-8.2) LFT Test 08/02/25 05:35 Alanine Aminotransferase (ALT) 10 U/L (7-40) Alkaline Phosphatase 40 U/L (46-116) L Aspartate Amino Transferase (AST) 22 U/L (13-40) Total Bilirubin 0.3 mg/dL (0.2-1.0) Urinalysis Test 07/31/25 08:20 08/01/25 17:30 Urine Hyaline Casts Mod /lpf (0 - 2) Urine Color Yellow (Yellow) Urine Clarity Turbid (Clear) H Urine pH 5.5 (5.0-9.0) Urine Specific [place] 1.026 (1.001-1.035) Urine Protein 1+ (Negative) H Urine Ketones 1+ (Negative) H Urine Blood 2+ /uL (Negative) H Urine Nitrite Negative (Negative) Urine Bilirubin Negative (Negative) Urine Urobilinogen Normal mg/dL (Negative) Urine Leukocyte Esterase 1+ /uL (Negative) Urine RBC 117 /hpf (0 - 4) Urine Microscopic WBC 24 /HPF (0-5) H Urine Squamous Epithelial Cells Few /hpf (<5) Urine Amorphous Crystals Few /hpf (None Seen) Urine Bacteria Few /hpf (None Seen) H Urine Mucus Few (None Seen) Urine Glucose 2+ mg/dL (Normal) H Microbiology Microbiology Date/Time Source Procedure Growth Status 08/01/25 17:30 Urine - [place] Urine Culture - Preliminary No growth Resulted 07/31/25 15:00 Nose MRSA Screen - Final Complete 07/31/25 09:30 Blood Blood Culture - Preliminary NO GROWTH AFTER 48 HOURS OF INCUBATION. Resulted Labs and/or images reviewed: Labs reviewed by me, Image(s) reviewed by me Assessment/Plan Assessment/Plan Impression: -bowel obstruction secondary to mass, status post colon resection with colostomy creation -sickle cell trait -primary hypertension -sirs response secondary to surgery -acute kidney injury, vasomotor nephropathy Plan: -continue TPN -increase physical therapy -NG to low intermittent suction -pain management -PPI -DVT prophylaxis -repeat labs in a.m. Total time spent with patient discussing and formulating plan of care: 35 minutes. This medical document was created using an electronic medical record system with [employer] dictation system. Although this document has been carefully reviewed, there may still be some phonetic and typographical errors. These areas are purely typographical due to imperfections of the software programs, and do not reflect any compromise in the patient's medical care. Plan discussed with: Patient, Other (RN) Date of Service: Aug 02, 2025 Billing Provider: SALBINO,MAJANO MACHINE JOINT CUTTER Common Visit Codes: [id number] INP/OBS CARE(HIGH) MELECIO ESQUIVEL NP Aug 02, 2025 17:04
--- NOTE | 2025-08-02 18:42 | DVHPN2 ---
Progress Note - Dictate Date Seen: Aug 02, 2025 Medical Necessity Reason Pt with a Central, PICC or Fol: Yes Subjective POD # 1 S/P Exploratory laparotomy with partial left colectomy with colostomy and appendectomy Minimal post op pain vital signs Vital Sign Date Time Temp Pulse Resp B/P (MAP) Pulse Ox O2 Delivery O2 Flow Rate FiO2 08/02/25 17:00 98.1 111 20 147/70 (95) 96 98.1 08/02/25 08:00 Room Air* 0 21 Total Intake and Output 08/01/25 08/01/25 08/02/25 15:00 23:00 07:00 Intake Total 246 ml 1273 ml 1108 ml Output Total 400 ml 190 ml 2250 ml Balance -154 ml 1083 ml -1142 ml medications Current Medications Medications Dose Ordered Sig/Latisha Route Start Time Stop Time Status Last Admin Dose Admin Amlodipine Besylate 10 mg DAILY PO 08/01/25 10:00 Atenolol 25 mg BID PO 07/31/25 10:00 Ceftriaxone Sodium 50 ml @ 100 mls/hr DAILY@09 IV 08/01/25 09:00 08/02/25 09:06 100 MLS/HR Metronidazole 100 ml @ 100 mls/hr Q8HR IV 07/31/25 14:00 08/02/25 14:56 100 MLS/HR Ondansetron HCl 4 mg Q8HPRN PRN IV 07/31/25 02:15 08/01/25 07:06 4 MG Amino Acids 0 ml @ 0 mls/hr PER PHARMACY IV 07/31/25 12:15 Lidocaine HCl 0.5 ml ONCE PRN ID 07/31/25 15:15 07/31/25 12:05 0.5 ML Sodium Chloride 10 ml QSHIFT@10,22 IV 07/31/25 22:00 08/02/25 09:07 10 ML Morphine Sulfate 2 mg Q4HPRN PRN IV 07/31/25 17:50 07/31/25 18:03 2 MG Fat Emulsion Intravenous 100 ml/Potassium Acetate 40 meq/ Potassium Phosphate 11 meq/ Multivitamins 10 ml/Chromium/ Copper/Manganese/ Zinc 1 ml/Amino Acids/Dextrose/ Purified Water 1,233.5 ml @ 51 mls/hr [id number] IV 08/01/25 22:00 08/02/25 21:59 08/01/25 22:27 51 MLS/HR Diagnostic Test (Pha) 1 strip Q6HR 08/02/25 00:00 08/02/25 18:08 1 STRIP Insulin Human Regular FOLLOW SLIDING SCALE Q6HR SC 08/02/25 00:00 08/02/25 18:13 4 UNITS Dextrose 50 ml UD IV 08/01/25 22:00 Hydralazine HCl 10 mg Q4HPRN PRN IV 08/02/25 08:45 08/02/25 09:06 10 MG Fat Emulsion Intravenous 150 ml/Potassium Phosphate 22 meq/ Magnesium Sulfate 4 meq/ Multivitamins 10 ml/Chromium/ Copper/Manganese/ Zinc 1 ml/Amino Acids/Dextrose/ Purified Water 1,367 ml @ 57 mls/hr [id number] IV 08/02/25 22:00 08/03/25 21:59 Morphine Sulfate 1 mg Q4HP PRN IV 08/02/25 10:45 08/02/25 10:43 1 MG Lactated Ringer's 1,000 ml @ 50 mls/hr Q20H IV 08/02/25 10:45 08/02/25 11:15 50 MLS/HR objective GEN: NAD; lungs clear, CVS S1-S2 regular rate rhythm ABD: surgical dressings clean and dry. drain 50 mL last night. 90 mL serosang today. UOP 900 mL laboratory and microbiology Laboratory Tests 08/02/25 05:35 Test 08/02/25 05:35 Range/Units Serum Glucose 173 H 74-106 mg/dL Problems(with codes): (1) Hypertension (2) Microcytic anemia (3) Intractable abdominal pain (4) Small bowel obstruction (5) Stricture of descending colon Prognosis Plan IV fluid hydration, IV antibiotics Keep NPO Continue IV TPN Pain control Await final pathology results Dietary Evaluation Review Comments: TPN to meet her needs @77-96g protein, 1600-1920kcal kcal Expected Outcomes/Goals: recover from bowel obstruction Plan discussed with: Other (Nurse) RA CARTER MD Aug 02, 2025 18:42
[2025-08-02] MEDS: TPN PER PHARMACY IV NR (22:21)
[2025-08-03] VITALS (9 sets, daily range): BP systolic 141–176; BP diastolic 63–102; PULSE 103–133; RESP 18–22; TEMP 97.3–99.6; O2SAT 96–98
[2025-08-03] MEDS: LORazepam 2MG/ML-1ML VIAL IV ONE (07:21)
--- NOTE | 2025-08-03 08:28 | DVHPN2 ---
Progress Note - Dictate Date Seen: Aug 03, 2025 Medical Necessity Reason Pt with a Central, PICC or Fol: No Subjective E: no major events o/n. was agitated last night. pain is better. ambulating. vital signs Vital Sign Date Time Temp Pulse Resp B/P (MAP) Pulse Ox O2 Delivery O2 Flow Rate FiO2 08/03/25 08:09 175/97 08/03/25 08:08 120 08/03/25 07:00 22 08/03/25 05:00 98.2 98 98.2 08/02/25 20:18 Room Air* 0 21 Total Intake and Output 08/02/25 08/02/25 08/03/25 15:00 23:00 07:00 Intake Total 1158 ml 0 ml 200 ml Output Total 800 ml 170 ml Balance 1158 ml -800 ml 30 ml medications Current Medications Medications Dose Ordered Sig/Latisha Route Start Time Stop Time Status Last Admin Dose Admin Amlodipine Besylate 10 mg DAILY PO 08/01/25 10:00 Atenolol 25 mg BID PO 07/31/25 10:00 Ceftriaxone Sodium 50 ml @ 100 mls/hr DAILY@09 IV 08/01/25 09:00 08/03/25 08:08 100 MLS/HR Metronidazole 100 ml @ 100 mls/hr Q8HR IV 07/31/25 14:00 08/03/25 05:32 100 MLS/HR Ondansetron HCl 4 mg Q8HPRN PRN IV 07/31/25 02:15 08/01/25 07:06 4 MG Amino Acids 0 ml @ 0 mls/hr PER PHARMACY IV 07/31/25 12:15 Lidocaine HCl 0.5 ml ONCE PRN ID 07/31/25 15:15 07/31/25 12:05 0.5 ML Sodium Chloride 10 ml QSHIFT@10,22 IV 07/31/25 22:00 08/03/25 08:08 10 ML Morphine Sulfate 2 mg Q4HPRN PRN IV 07/31/25 17:50 07/31/25 18:03 2 MG Diagnostic Test (Pha) 1 strip Q6HR 08/02/25 00:00 08/03/25 05:32 1 STRIP Insulin Human Regular FOLLOW SLIDING SCALE Q6HR SC 08/02/25 00:00 08/02/25 18:13 4 UNITS Dextrose 50 ml UD IV 08/01/25 22:00 Hydralazine HCl 10 mg Q4HPRN PRN IV 08/02/25 08:45 08/03/25 08:09 10 MG Fat Emulsion Intravenous 150 ml/Potassium Phosphate 22 meq/ Magnesium Sulfate 4 meq/ Multivitamins 10 ml/Chromium/ Copper/Manganese/ Zinc 1 ml/Amino Acids/Dextrose/ Purified Water 1,367 ml @ 57 mls/hr [id number] IV 08/02/25 22:00 08/03/25 21:59 08/02/25 22:21 57 MLS/HR Morphine Sulfate 1 mg Q4HP PRN IV 08/02/25 10:45 08/02/25 10:43 1 MG Lactated Ringer's 1,000 ml @ 50 mls/hr Q20H IV 08/02/25 10:45 08/02/25 11:15 50 MLS/HR objective GEN: NAD ABD: surgical incision clean and dry. colostomy viable but not productive yet. drain with 70 mL serosang. laboratory and microbiology Laboratory Tests 08/02/25 05:35 Test 08/02/25 05:35 Range/Units Serum Glucose 173 H 74-106 mg/dL Assessment/Plan A: 1. 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 dc luz 2. ambulate Dietary Evaluation Review Comments: TPN to meet her needs @77-96g protein, 1600-1920kcal kcal Expected Outcomes/Goals: recover from bowel obstruction Plan discussed with: Patient CECILIA HILLS MD Aug 03, 2025 08:28
[2025-08-03 11:10] LABS: Alanine Aminotransferase 12 U/L (7-40); Albumin 3.5 g/dL (3.2-4.8); Alkaline Phosphatase 47 U/L (46-116); Anion Gap 11 (5-15); BUN/Creatinine Ratio 14.5 (10.0-20.0); Bilirubin, Total 0.3 mg/dL (0.2-1.0); Blood Urea Nitrogen 12 mg/dL (9-23); Calcium 9.3 mg/dL (8.7-10.4); Carbon Dioxide 28 mmol/L (20-31); Chloride 107 mmol/L (98-107); Glucose 223 mg/dL (74-106); Magnesium 1.6 mg/dL (1.6-2.6); Potassium 3.3 mmol/L (3.5-5.1); Sodium 146 mmol/L (136-145); Total Protein 6.7 g/dL (5.7-8.2)
--- NOTE | 2025-08-03 11:12 | DVHPN2 ---
Subjective Patient reporting sore throat and then reporting anxiety Reviewed: Care Plan, H&P, Labs, Medications Changes from previous H/P or p: Changes General: Per HPI Objective Vitals Vital Signs Date Time Temp Pulse Resp B/P (MAP) Pulse Ox O2 Delivery O2 Flow Rate FiO2 08/03/25 09:00 97.4 120 18 175/97 (123) 96 97.4 08/02/25 20:18 Room Air* 0 21 Intake/Output Intake and Output 08/03/25 07:00 Intake Total 1358 ml Output Total 970 ml Balance 388 ml Intake Oral 0 ml IV Total 1358 ml Output Urine Total 970 ml General Appearance: Alert, Oriented X3, Cooperative, mild distress HEENT: Atraumatic, PERRLA Lungs: Clear to auscultation, Normal air movement Cardiovascular: Normal S1, Normal S2, Other (Sinus tachycardia) Abdomen: Normal bowel sounds, Soft, No tenderness, No hepatospenomegaly, No masses Genitourinary: No Apparent Abnormalities Musculoskeletal: Normal sensory function, Normal motor function Skin: Dry, Intact Psych/Mental Status: Mental status NL, Other (Patient is anxious) Medications Current Medications Medications Dose Ordered Sig/Latisha Route Start Time Stop Time Status Last Admin Dose Admin Amlodipine Besylate 10 mg DAILY PO 08/01/25 10:00 Atenolol 25 mg BID PO 07/31/25 10:00 Ceftriaxone Sodium 50 ml @ 100 mls/hr DAILY@09 IV 08/01/25 09:00 08/03/25 08:08 100 MLS/HR Metronidazole 100 ml @ 100 mls/hr Q8HR IV 07/31/25 14:00 08/03/25 05:32 100 MLS/HR Ondansetron HCl 4 mg Q8HPRN PRN IV 07/31/25 02:15 08/01/25 07:06 4 MG Amino Acids 0 ml @ 0 mls/hr PER PHARMACY IV 07/31/25 12:15 Lidocaine HCl 0.5 ml ONCE PRN ID 07/31/25 15:15 07/31/25 12:05 0.5 ML Sodium Chloride 10 ml QSHIFT@10,22 IV 07/31/25 22:00 08/03/25 08:08 10 ML Morphine Sulfate 2 mg Q4HPRN PRN IV 07/31/25 17:50 07/31/25 18:03 2 MG Diagnostic Test (Pha) 1 strip Q6HR 08/02/25 00:00 08/03/25 05:32 1 STRIP Insulin Human Regular FOLLOW SLIDING SCALE Q6HR SC 08/02/25 00:00 08/02/25 18:13 4 UNITS Dextrose 50 ml UD IV 08/01/25 22:00 Hydralazine HCl 10 mg Q4HPRN PRN IV 08/02/25 08:45 08/03/25 08:09 10 MG Fat Emulsion Intravenous 150 ml/Potassium Phosphate 22 meq/ Magnesium Sulfate 4 meq/ Multivitamins 10 ml/Chromium/ Copper/Manganese/ Zinc 1 ml/Amino Acids/Dextrose/ Purified Water 1,367 ml @ 57 mls/hr [id number] IV 08/02/25 22:00 08/03/25 21:59 08/02/25 22:21 57 MLS/HR Morphine Sulfate 1 mg Q4HP PRN IV 08/02/25 10:45 08/02/25 10:43 1 MG Lactated Ringer's 1,000 ml @ 50 mls/hr Q20H IV 08/02/25 10:45 08/02/25 11:15 50 MLS/HR Laboratory Results Laboratory Tests 08/02/25 05:35 Chemistry Test 08/03/25 10:48 Albumin Pending Calcium Level Pending Magnesium Level Pending Phosphorus Level Pending Total Protein Pending LFT Test 08/03/25 10:48 Alanine Aminotransferase (ALT) Pending Alkaline Phosphatase Pending Aspartate Amino Transferase (AST) Pending Total Bilirubin Pending Urinalysis Test 07/31/25 08:20 08/01/25 17:30 Urine Hyaline Casts Mod /lpf (0 - 2) Urine Color Yellow (Yellow) Urine Clarity Turbid (Clear) H Urine pH 5.5 (5.0-9.0) Urine Specific [place] 1.026 (1.001-1.035) Urine Protein 1+ (Negative) H Urine Ketones 1+ (Negative) H Urine Blood 2+ /uL (Negative) H Urine Nitrite Negative (Negative) Urine Bilirubin Negative (Negative) Urine Urobilinogen Normal mg/dL (Negative) Urine Leukocyte Esterase 1+ /uL (Negative) Urine RBC 117 /hpf (0 - 4) Urine Microscopic WBC 24 /HPF (0-5) H Urine Squamous Epithelial Cells Few /hpf (<5) Urine Amorphous Crystals Few /hpf (None Seen) Urine Bacteria Few /hpf (None Seen) H Urine Mucus Few (None Seen) Urine Glucose 2+ mg/dL (Normal) H Microbiology Microbiology Date/Time Source Procedure Growth Status 08/01/25 17:30 Urine - [place] Urine Culture - Preliminary No growth Resulted 07/31/25 15:00 Nose MRSA Screen - Final Complete 07/31/25 09:30 Blood Blood Culture - Preliminary NO GROWTH AFTER 72 HOURS OF INCUBATION. Resulted Labs and/or images reviewed: Labs reviewed by me, Image(s) reviewed by me Assessment/Plan Assessment/Plan Impression: -bowel obstruction secondary to mass, status post colon resection with colostomy creation -sickle cell trait -primary hypertension -sirs response secondary to surgery -acute kidney injury, vasomotor nephropathy -possible beta fabiana withdrawal Plan: -start metoprolol IV we will 0.25 mg q.6 hours 1st dose now. Patient reports taking atenolol 25 mg p.o. b.i.d.. -continue TPN , diet to be advanced by surgeon -Cepacol lozenges for throat pain. IV lorazepam for anxiety -increase physical therapy -NG to low intermittent suction -pain management -PPI -DVT prophylaxis -repeat labs in a.m. Total time spent with patient discussing and formulating plan of care: 35 minutes. This medical document was created using an electronic medical record system with [employer] dictation system. Although this document has been carefully reviewed, there may still be some phonetic and typographical errors. These areas are purely typographical due to imperfections of the software programs, and do not reflect any compromise in the patient's medical care. Plan discussed with: Patient, Other (RN) My Orders Orders - MELECIO ESQUIVEL NP Procedure Category Date Status Time Transfer Orders XFER 08/03/25 Transmitted 10:17 Complete Blood Count LAB 08/04/25 Verified 04:00 Throat Lozenges PHA 08/03/25 Transmitted (Cepastat Lozenges) 11:15 Metoprolol Inj PHA 08/03/25 Transmitted (Lopressor) 11:15 Lorazepam 2mg/Ml Inj PHA 08/03/25 Transmitted (Ativan Inj) 11:15 Date of Service: Aug 03, 2025 Billing Provider: MELECIO ESQUIVEL NP Common Visit Codes: [id number] INP/OBS CARE(HIGH) MELECIO ESQUIVEL PEACH GROWER Aug 03, 2025 11:11
[2025-08-03] MEDS ORDERED: LORazepam 2MG/ML-1ML VIAL IV PRN (11:15)
[2025-08-03] MEDS ORDERED: THROAT LOZENGES(CEPASTAT) MT PRN (11:15)
[2025-08-03] MEDS: METOPROLOL TARTRATE 1MG/1ML-5ML VIAL IV SCH (12:51)
[2025-08-03] MEDS: POTASSIUM PHOSPHATE 44 MEQ in D5W 5% 250 ML IV ONE (16:09)
[2025-08-03] MEDS: METOPROLOL TARTRATE 1MG/1ML-5ML VIAL IV ONE (17:07)
[2025-08-03] MEDS: TPN PER PHARMACY IV NR (21:31)
--- NOTE | 2025-08-03 22:16 | DVHPN2 ---
Progress Note - Dictate Date Seen: Aug 03, 2025 Medical Necessity Reason Pt with a Central, PICC or Fol: No Subjective POD # 2 S/P Exploratory laparotomy with partial left colectomy with colostomy and appendectomy Minimal post op pain; patient ambulated Reports anxiety and was agitated vital signs Vital Sign Date Time Temp Pulse Resp B/P (MAP) Pulse Ox O2 Delivery O2 Flow Rate FiO2 08/03/25 21:00 98.3 103 19 164/63 (96) 97 98.3 08/03/25 20:00 Room Air* 0 21 Total Intake and Output 08/02/25 08/02/25 08/03/25 15:00 23:00 07:00 Intake Total 1158 ml 0 ml 200 ml Output Total 800 ml 170 ml Balance 1158 ml -800 ml 30 ml medications Current Medications Medications Dose Ordered Sig/Latisha Route Start Time Stop Time Status Last Admin Dose Admin Ceftriaxone Sodium 50 ml @ 100 mls/hr DAILY@09 IV 08/01/25 09:00 08/03/25 08:08 100 MLS/HR Metronidazole 100 ml @ 100 mls/hr Q8HR IV 07/31/25 14:00 08/03/25 21:40 100 MLS/HR Ondansetron HCl 4 mg Q8HPRN PRN IV 07/31/25 02:15 08/01/25 07:06 4 MG Amino Acids 0 ml @ 0 mls/hr PER PHARMACY IV 07/31/25 12:15 Lidocaine HCl 0.5 ml ONCE PRN ID 07/31/25 15:15 07/31/25 12:05 0.5 ML Sodium Chloride 10 ml QSHIFT@10,22 IV 07/31/25 22:00 08/03/25 21:33 10 ML Morphine Sulfate 2 mg Q4HPRN PRN IV 07/31/25 17:50 07/31/25 18:03 2 MG Diagnostic Test (Pha) 1 strip Q6HR 08/02/25 00:00 08/03/25 17:16 1 STRIP Insulin Human Regular FOLLOW SLIDING SCALE Q6HR SC 08/02/25 00:00 08/03/25 18:38 4 UNITS Dextrose 50 ml UD IV 08/01/25 22:00 Morphine Sulfate 1 mg Q4HP PRN IV 08/02/25 10:45 08/02/25 10:43 1 MG Lactated Ringer's 1,000 ml @ 50 mls/hr Q20H IV 08/02/25 10:45 08/02/25 11:15 50 MLS/HR Throat Lozenges 1 tessa Q2HP PRN MT 08/03/25 11:15 Metoprolol Tartrate 1.25 mg Q6HR IV 08/03/25 11:15 08/03/25 12:51 1.25 MG Lorazepam 0.5 mg Q8HP PRN IV 08/03/25 11:15 Fat Emulsion Intravenous 200 ml/Potassium Phosphate 33 meq/ Magnesium Sulfate 8 meq/ Multivitamins 10 ml/Chromium/ Copper/Manganese/ Zinc 1 ml/Amino Acids/Dextrose/ Purified Water 1,320.5 ml @ 55 mls/hr Q24H1M IV 08/03/25 22:00 08/04/25 21:59 objective GEN: NAD; lungs clear, CVS S1-S2 regular rate rhythm ABD: surgical dressings clean and dry. drain 50 mL last night. 90 mL serosang today. UOP 900 mL laboratory and microbiology Laboratory Tests 08/03/25 10:48 08/02/25 05:35 Test 08/03/25 10:48 Range/Units Serum Glucose 223 H 74-106 mg/dL Problems(with codes): (1) Stricture of descending colon (2) Microcytic anemia (3) Intractable abdominal pain (4) Small bowel obstruction (5) Hypertension Prognosis Plan IV fluid hydration, IV antibiotics Keep NPO Continue IV TPN Pain control Await final pathology results Appreciate surgical follow up Monitor labs Dietary Evaluation Review Comments: TPN to meet her needs @77-96g protein, 1600-1920kcal kcal Expected Outcomes/Goals: recover from bowel obstruction Plan discussed with: Patient RA CARTER MD Aug 03, 2025 22:16
[2025-08-04] VITALS (9 sets, daily range): BP systolic 134–165; BP diastolic 75–102; PULSE 74–122; RESP 16–19; TEMP 97.2–98.2; O2SAT 96–97
--- NOTE | 2025-08-04 01:31 | DVH ---
CLINICAL INDICATION: swollen upper extremity, PICC line TECHNIQUE: XY L HUMERUS XRAY COMPARISON: None FINDINGS/IMPRESSION: : There is no evidence of acute fracture or dislocation. Soft tissues are unremarkable. Proximal aspect of peripherally inserted central catheter noted.
[2025-08-04 06:23] LABS: Hematocrit 33.0 % (36.0-46.0); Hemoglobin 10.2 g/dL (12.2-16.2); Mean Corpuscular Hemoglobin 20.6 pg (28.0-32.0); Mean Corpuscular Volume 66.8 fL (80.0-100.0); Nucleated Red Blood Cells % 0.0 %
[2025-08-04 06:41] LABS: Alanine Aminotransferase 18 U/L (7-40); Albumin 3.9 g/dL (3.2-4.8); Alkaline Phosphatase 62 U/L (46-116); Anion Gap 13 (5-15); BUN/Creatinine Ratio 11.4 (10.0-20.0); Blood Urea Nitrogen 10 mg/dL (9-23); Calcium 9.7 mg/dL (8.7-10.4); Carbon Dioxide 28 mmol/L (20-31); Magnesium 1.8 mg/dL (1.6-2.6); Total Protein 7.3 g/dL (5.7-8.2)
[2025-08-04 06:42] LABS: Bilirubin, Total 0.9 mg/dL (0.2-1.0)
[2025-08-04 06:45] LABS: Chloride 107 mmol/L (98-107); Glucose 126 mg/dL (74-106); Potassium 3.3 mmol/L (3.5-5.1); Sodium 148 mmol/L (136-145)
[2025-08-04 07:55] LABS: Anisocytosis Moderate; Ovalocytes FEW
[2025-08-04] MEDS: POTASSIUM PHOSPHATE 44 MEQ in D5W 5% 250 ML IV ONE (10:50)
--- NOTE | 2025-08-04 11:57 | DVHPN2 ---
Subjective Patient denies any symptoms at this time. Reviewed: Care Plan, H&P, Labs, Medications Changes from previous H/P or p: No Changes General: Per HPI Objective Vitals Vital Signs Date Time Temp Pulse Resp B/P (MAP) Pulse Ox O2 Delivery O2 Flow Rate FiO2 08/04/25 09:00 97.2 119 17 160/96 (117) 97 97.2 08/03/25 20:00 Room Air* 0 21 Intake/Output Intake and Output 08/04/25 06:59 Intake Total 1970 ml Output Total 3090 ml Balance -1120 ml Intake Oral 820 ml IV Total 350 ml Other 800 ml Output Urine Total 600 ml Gastric Drainage Total 2450 ml Other 40 ml # Voids 6 General Appearance: Alert, Oriented X3, Cooperative, mild distress HEENT: Atraumatic, PERRLA Lungs: Clear to auscultation, Normal air movement Cardiovascular: Normal S1, Normal S2, Other (Sinus tachycardia) Abdomen: Normal bowel sounds, Soft, No tenderness, No hepatospenomegaly, No masses Genitourinary: No Apparent Abnormalities Musculoskeletal: Normal sensory function, Normal motor function Skin: Dry, Intact Psych/Mental Status: Mental status NL, Other (Patient is anxious) Medications Current Medications Medications Dose Ordered Sig/Latisha Route Start Time Stop Time Status Last Admin Dose Admin Ceftriaxone Sodium 50 ml @ 100 mls/hr DAILY@09 IV 08/01/25 09:00 08/04/25 09:33 100 MLS/HR Metronidazole 100 ml @ 100 mls/hr Q8HR IV 07/31/25 14:00 08/04/25 05:47 100 MLS/HR Ondansetron HCl 4 mg Q8HPRN PRN IV 07/31/25 02:15 08/01/25 07:06 4 MG Amino Acids 0 ml @ 0 mls/hr PER PHARMACY IV 07/31/25 12:15 Lidocaine HCl 0.5 ml ONCE PRN ID 07/31/25 15:15 07/31/25 12:05 0.5 ML Sodium Chloride 10 ml QSHIFT@10,22 IV 07/31/25 22:00 08/04/25 09:33 10 ML Morphine Sulfate 2 mg Q4HPRN PRN IV 07/31/25 17:50 07/31/25 18:03 2 MG Diagnostic Test (Pha) 1 strip Q6HR 08/02/25 00:00 08/04/25 05:40 1 STRIP Insulin Human Regular FOLLOW SLIDING SCALE Q6HR SC 08/02/25 00:00 08/03/25 18:38 4 UNITS Dextrose 50 ml UD IV 08/01/25 22:00 Morphine Sulfate 1 mg Q4HP PRN IV 08/02/25 10:45 08/02/25 10:43 1 MG Lactated Ringer's 1,000 ml @ 50 mls/hr Q20H IV 08/02/25 10:45 08/04/25 00:07 50 MLS/HR Throat Lozenges 1 tessa Q2HP PRN MT 08/03/25 11:15 Metoprolol Tartrate 1.25 mg Q6HR IV 08/03/25 11:15 08/03/25 23:57 1.25 MG Lorazepam 0.5 mg Q8HP PRN IV 08/03/25 11:15 Fat Emulsion Intravenous 200 ml/Potassium Phosphate 33 meq/ Magnesium Sulfate 8 meq/ Multivitamins 10 ml/Chromium/ Copper/Manganese/ Zinc 1 ml/Amino Acids/Dextrose/ Purified Water 1,320.5 ml @ 55 mls/hr Q24H1M IV 08/03/25 22:00 08/04/25 21:59 Fat Emulsion Intravenous 250 ml/Potassium Acetate 30 meq/ Magnesium Sulfate 10 meq/ Multivitamins 10 ml/Chromium/ Copper/Manganese/ Zinc 1 ml/Amino Acids/Dextrose/ Purified Water 1,478.5 ml @ 62 mls/hr [id number] IV 08/04/25 22:00 08/05/25 21:59 Laboratory Results Laboratory Tests 08/04/25 05:44 Chemistry Test 08/04/25 05:44 Albumin 3.9 g/dL (3.2-4.8) Calcium Level 9.7 mg/dL (8.7-10.4) Magnesium Level 1.8 mg/dL (1.6-2.6) Phosphorus Level 3.8 mg/dL (2.4-5.1) Total Protein 7.3 g/dL (5.7-8.2) LFT Test 08/04/25 05:44 Alanine Aminotransferase (ALT) 18 U/L (7-40) Alkaline Phosphatase 62 U/L (46-116) Aspartate Amino Transferase (AST) 31 U/L (13-40) Total Bilirubin 0.9 mg/dL (0.2-1.0) Urinalysis Test 07/31/25 08:20 08/01/25 17:30 Urine Hyaline Casts Mod /lpf (0 - 2) Urine Color Yellow (Yellow) Urine Clarity Turbid (Clear) H Urine pH 5.5 (5.0-9.0) Urine Specific [place] 1.026 (1.001-1.035) Urine Protein 1+ (Negative) H Urine Ketones 1+ (Negative) H Urine Blood 2+ /uL (Negative) H Urine Nitrite Negative (Negative) Urine Bilirubin Negative (Negative) Urine Urobilinogen Normal mg/dL (Negative) Urine Leukocyte Esterase 1+ /uL (Negative) Urine RBC 117 /hpf (0 - 4) Urine Microscopic WBC 24 /HPF (0-5) H Urine Squamous Epithelial Cells Few /hpf (<5) Urine Amorphous Crystals Few /hpf (None Seen) Urine Bacteria Few /hpf (None Seen) H Urine Mucus Few (None Seen) Urine Glucose 2+ mg/dL (Normal) H Microbiology Microbiology Date/Time Source Procedure Growth Status 08/01/25 17:30 Urine - [place] Urine Culture - Final Complete 07/31/25 15:00 Nose MRSA Screen - Final Complete 07/31/25 09:30 Blood Blood Culture - Preliminary NO GROWTH AFTER 72 HOURS OF INCUBATION. Resulted Labs and/or images reviewed: Labs reviewed by me, Image(s) reviewed by me Assessment/Plan Assessment/Plan Impression: -bowel obstruction secondary to mass, status post colon resection with colostomy creation -sickle cell trait -primary hypertension -sirs response secondary to surgery -acute kidney injury, vasomotor nephropathy -possible beta fabiana withdrawal Plan: Events: Patient continues to be tachycardic. Evening nurse decided to hold metoprolol tartrate even though was ordered. The patient's diet to be advanced today. If patient tolerates having NG tube clamped and removed, start p.o. atenolol -continue TPN, K-Phos replacement today -Cepacol lozenges for throat pain. IV lorazepam for anxiety -increase physical therapy -NG to low intermittent suction -pain management -PPI -DVT prophylaxis -repeat labs in a.m. Total time spent with patient discussing and formulating plan of care: 35 minutes. This medical document was created using an electronic medical record system with [employer] computerized dictation system. Although this document has been carefully reviewed, there may still be some phonetic and typographical errors. These areas are purely typographical due to imperfections of the software programs, and do not reflect any compromise in the patient's medical care. Plan discussed with: Patient, Other (RN) Date of Service: Aug 04, 2025 Billing Provider: MELECIO ESQUIVEL NP Common Visit Codes: [id number] INP/OBS CARE(HIGH) MELECIO ESQUIVEL NP Aug 04, 2025 11:57
[2025-08-04] MEDS: METOPROLOL TARTRATE 1MG/1ML-5ML VIAL IV SCH (12:24)
[2025-08-04] MEDS: METOPROLOL TARTRATE 1MG/1ML-5ML VIAL IV ONE (12:30)
--- NOTE | 2025-08-04 12:44 | DVH ---
TECHNIQUE: Real-time ultrasound imaging, with color Doppler and compression of the left upper extremity veins. INDICATION: Ruled out clot COMPARISON: None FINDINGS: Left internal jugular vein demonstrates color flow and patency. The left subclavian vein demonstrates occlusive thrombus. Left axillary vein demonstrates occlusive thrombus. Occlusive thrombus within left brachial vein. Left radial ulnar veins demonstrate color flow. Left cephalic vein is compressible. There is a left upper extremity PICC line within the basilic vein extending centrally IMPRESSION: Occlusive deep vein thrombosis involving the left subclavian, axillary veins extending into the left brachial vein. Superficial vein thrombus left basilic vein. PICC line is surrounded by occlusive thrombus.
--- NOTE | 2025-08-04 13:04 | DVHPN2 ---
Progress Note - Surgical Date Seen: Aug 04, 2025 Post op day Post op day: 3 Subjective Patient reports: Feels better (Patient states she feels well, once the NG tube out, no abdominal pain complaints, no bloating, no burping, feels rumbling in the intestines) Review of Systems: Deferred Objective Vital signs Vital Sign Date Time Temp Pulse Resp B/P (MAP) Pulse Ox O2 Delivery O2 Flow Rate FiO2 08/04/25 12:24 119 165/91 08/04/25 09:00 97.2 17 97 97.2 08/03/25 20:00 Room Air* 0 21 Total Intake and Output 08/03/25 08/03/25 08/04/25 14:59 22:59 06:59 Intake Total 150 ml 100 ml 1720 ml Output Total 1250 ml 40 ml 1800 ml Balance -1100 ml 60 ml -80 ml Medications Current Medications Medications Dose Ordered Sig/Latisha Route Start Time Stop Time Status Last Admin Dose Admin Ceftriaxone Sodium 50 ml @ 100 mls/hr DAILY@09 IV 08/01/25 09:00 08/04/25 09:33 100 MLS/HR Metronidazole 100 ml @ 100 mls/hr Q8HR IV 07/31/25 14:00 08/04/25 05:47 100 MLS/HR Ondansetron HCl 4 mg Q8HPRN PRN IV 07/31/25 02:15 08/01/25 07:06 4 MG Amino Acids 0 ml @ 0 mls/hr PER PHARMACY IV 07/31/25 12:15 Lidocaine HCl 0.5 ml ONCE PRN ID 07/31/25 15:15 07/31/25 12:05 0.5 ML Sodium Chloride 10 ml QSHIFT@10,22 IV 07/31/25 22:00 08/04/25 09:33 10 ML Morphine Sulfate 2 mg Q4HPRN PRN IV 07/31/25 17:50 07/31/25 18:03 2 MG Diagnostic Test (Pha) 1 strip Q6HR 08/02/25 00:00 08/04/25 12:24 1 STRIP Insulin Human Regular FOLLOW SLIDING SCALE Q6HR SC 08/02/25 00:00 08/03/25 18:38 4 UNITS Dextrose 50 ml UD IV 08/01/25 22:00 Morphine Sulfate 1 mg Q4HP PRN IV 08/02/25 10:45 08/02/25 10:43 1 MG Lactated Ringer's 1,000 ml @ 50 mls/hr Q20H IV 08/02/25 10:45 08/04/25 00:07 50 MLS/HR Throat Lozenges 1 tessa Q2HP PRN MT 08/03/25 11:15 Lorazepam 0.5 mg Q8HP PRN IV 08/03/25 11:15 Fat Emulsion Intravenous 200 ml/Potassium Phosphate 33 meq/ Magnesium Sulfate 8 meq/ Multivitamins 10 ml/Chromium/ Copper/Manganese/ Zinc 1 ml/Amino Acids/Dextrose/ Purified Water 1,320.5 ml @ 55 mls/hr Q24H1M IV 08/03/25 22:00 08/04/25 21:59 Fat Emulsion Intravenous 250 ml/Potassium Acetate 30 meq/ Magnesium Sulfate 10 meq/ Multivitamins 10 ml/Chromium/ Copper/Manganese/ Zinc 1 ml/Amino Acids/Dextrose/ Purified Water 1,478.5 ml @ 62 mls/hr [id number] IV 08/04/25 22:00 08/05/25 21:59 Atenolol 25 mg BID PO 08/04/25 22:00 Laboratory Laboratory Tests 08/04/25 05:44 Test 08/04/25 05:44 Range/Units Serum Glucose 126 H 74-106 mg/dL Microbiology Date/Time Source Procedure Growth Status 08/01/25 17:30 Urine - [place] Urine Culture - Final Complete 07/31/25 15:00 Nose MRSA Screen - Final Complete 07/31/25 09:30 Blood Blood Culture - Preliminary NO GROWTH AFTER 72 HOURS OF INCUBATION. Resulted Examination: GENERAL:Normal (AAO x3), HEENT:Normal (NG tube in place with clear output), LUNGS:Normal (Nonlabored breathing with symmetric expansion), ABDOMEN:Normal (Nondistended, soft, depressible, ostomy with pink mucosa and bowel sweat in bag, incision with rene in place, drain with serous output) Labs and/or images reviewed: Labs reviewed by me (Leukocytosis downtrending 12.6 from 13.8) Problem List/Assessment/Plan Assessment and Plan Mrs. Mendosa is a 54-year-old female who is currently postop day 3 from exploratory laparotomy with left colectomy and end colostomy. Patient doing well after surgery. Still has a NG tube, it was documented 2.4 L output, it is clear fluid in the canister, and patient has been drinking/eating ice and having used the surround the NG tube. Ostomy has bowel sweat in bag. We will clamp the NG tube today, trial the patient on clear liquid diets and if tolerated NG tube can be removed around 5:00 p.m. today. 1. Clamp NG tube 2. Clear liquid diet 3. If patient tolerates the clear liquid diet all afternoon, DC the NG tube around 5:00 p.m. but maintain the patient on clear liquid diet 4. Out of bed and ambulate 5. Okay to shower My Orders My Orders Orders - MERRITT UGARTE MD Procedure Category Date Status Time Clear Liq Diet DIET 08/04/25 Transmitted Lunch Lt Upper Dvt US 08/04/25 Resulted 11:49 Plan discussed with Plan discussed with: Patient Visit Coding Surgery Date of Service if different f: Aug 04, 2025 Billing Provider: MERRITT UGARTE MD Surgery Visit Codes: [id number] INP/OBS CARE(HIGH) MERRITT UGARTE MD Aug 04, 2025 13:04
--- NOTE | 2025-08-04 16:37 | DVHPN2 ---
Progress Note - Dictate Date Seen: Aug 04, 2025 Medical Necessity Reason Pt with a Central, PICC or Fol: No Subjective POD # 3 S/P Exploratory laparotomy with partial left colectomy with colostomy and appendectomy Minimal post op pain; patient ambulated Feels better no abdominal pain complaints, no bloating, no burping, feels rumbling in the intestines) vital signs Vital Sign Date Time Temp Pulse Resp B/P (MAP) Pulse Ox O2 Delivery O2 Flow Rate FiO2 08/04/25 13:24 118 149/85 08/04/25 13:00 97.4 18 96 97.4 08/04/25 08:00 Room Air* 0 21 Total Intake and Output 08/03/25 08/03/25 08/04/25 15:00 23:00 07:00 Intake Total 150 ml 100 ml 1720 ml Output Total 1250 ml 40 ml 1800 ml Balance -1100 ml 60 ml -80 ml medications Current Medications Medications Dose Ordered Sig/Latisha Route Start Time Stop Time Status Last Admin Dose Admin Ceftriaxone Sodium 50 ml @ 100 mls/hr DAILY@09 IV 08/01/25 09:00 08/04/25 09:33 100 MLS/HR Metronidazole 100 ml @ 100 mls/hr Q8HR IV 07/31/25 14:00 08/04/25 14:53 100 MLS/HR Ondansetron HCl 4 mg Q8HPRN PRN IV 07/31/25 02:15 08/01/25 07:06 4 MG Amino Acids 0 ml @ 0 mls/hr PER PHARMACY IV 07/31/25 12:15 Hold Lidocaine HCl 0.5 ml ONCE PRN ID 07/31/25 15:15 07/31/25 12:05 0.5 ML Sodium Chloride 10 ml QSHIFT@10,22 IV 07/31/25 22:00 08/04/25 09:33 10 ML Morphine Sulfate 2 mg Q4HPRN PRN IV 07/31/25 17:50 07/31/25 18:03 2 MG Diagnostic Test (Pha) 1 strip Q6HR 08/02/25 00:00 08/04/25 12:24 1 STRIP Insulin Human Regular FOLLOW SLIDING SCALE Q6HR SC 08/02/25 00:00 08/03/25 18:38 4 UNITS Dextrose 50 ml UD IV 08/01/25 22:00 Morphine Sulfate 1 mg Q4HP PRN IV 08/02/25 10:45 08/02/25 10:43 1 MG Lactated Ringer's 1,000 ml @ 50 mls/hr Q20H IV 08/02/25 10:45 08/04/25 00:07 50 MLS/HR Throat Lozenges 1 tessa Q2HP PRN MT 08/03/25 11:15 Lorazepam 0.5 mg Q8HP PRN IV 08/03/25 11:15 Fat Emulsion Intravenous 200 ml/Potassium Phosphate 33 meq/ Magnesium Sulfate 8 meq/ Multivitamins 10 ml/Chromium/ Copper/Manganese/ Zinc 1 ml/Amino Acids/Dextrose/ Purified Water 1,320.5 ml @ 55 mls/hr Q24H1M IV 08/03/25 22:00 08/04/25 21:59 Fat Emulsion Intravenous 250 ml/Potassium Acetate 30 meq/ Magnesium Sulfate 10 meq/ Multivitamins 10 ml/Chromium/ Copper/Manganese/ Zinc 1 ml/Amino Acids/Dextrose/ Purified Water 1,478.5 ml @ 62 mls/hr [id number] IV 08/04/25 22:00 08/05/25 21:59 Future Hold Atenolol 25 mg BID PO 08/04/25 22:00 objective GEN: NAD; lungs clear, CVS S1-S2 regular rate rhythm ABD: surgical dressings clean and dry. drain 50 mL last night. 90 mL serosang today. UOP 900 mL laboratory and microbiology Laboratory Tests 08/04/25 05:44 Test 08/04/25 05:44 Range/Units Serum Glucose 126 H 74-106 mg/dL Problems(with codes): (1) Stricture of descending colon (2) Microcytic anemia (3) Intractable abdominal pain (4) Hypertension Prognosis PLAN 1. Clamp NG tube 2. Clear liquid diet 3. If patient tolerates the clear liquid diet all afternoon, DC the NG tube around 5:00 p.m. but maintain the patient on clear liquid diet 4. Out of bed and ambulate 5. Okay to shower 6. IVF;IV Abx Dietary Evaluation Review Comments: TPN to meet her needs @77-96g protein, 1600-1920kcal kcal Expected Outcomes/Goals: recover from bowel obstruction Plan discussed with: Patient, Other RA CARTER MD Aug 04, 2025 16:37
[2025-08-04] MEDS: LABETALOL HCL 20 MG/4 ML VL IV PRN (17:32)
[2025-08-04] MEDS: ENOXAPARIN SOD 80 MG/0.8ML SYRINGE SC ONE (20:18)
[2025-08-04] MEDS: ATENOLOL 25 MG TAB PO SCH (21:56)
[2025-08-04] MEDS ORDERED: TPN PER PHARMACY IV NR (22:00)
[2025-08-05] VITALS (8 sets, daily range): BP systolic 110–165; BP diastolic 56–100; PULSE 91–112; RESP 16–20; TEMP 96.9–98.5; O2SAT 96–98
[2025-08-05 06:39] LABS: Alanine Aminotransferase 21 U/L (7-40); Albumin 3.5 g/dL (3.2-4.8); Alkaline Phosphatase 60 U/L (46-116); Anion Gap 11 (5-15); BUN/Creatinine Ratio 9.8 (10.0-20.0); Calcium 9.0 mg/dL (8.7-10.4); Carbon Dioxide 27 mmol/L (20-31); Magnesium 1.9 mg/dL (1.6-2.6); Potassium 3.6 mmol/L (3.5-5.1); Total Protein 6.8 g/dL (5.7-8.2)
[2025-08-05 06:40] LABS: Bilirubin, Total 0.8 mg/dL (0.2-1.0)
[2025-08-05 06:54] LABS: Blood Urea Nitrogen 9 mg/dL (9-23); Chloride 109 mmol/L (98-107); Glucose 123 mg/dL (74-106); Sodium 147 mmol/L (136-145)
[2025-08-05] MEDS: ENOXAPARIN SOD 80 MG/0.8ML SYRINGE SC SCH (10:41)
--- NOTE | 2025-08-05 10:56 | DVHPN2 ---
Assessment/Plan Assessment/Plan 08/05 thrombosis on picc line and sujey UE veins, dc picc line. patient tolerating clear liquid, dc TPN Impression: -bowel obstruction secondary to mass, status post colon resection with colostomy creation -sickle cell trait -primary hypertension -sirs response secondary to surgery -acute kidney injury, vasomotor nephropathy -possible beta fabiana withdrawal -DVT to left upper extremity around PICC line -positive pulmonary embolism Plan: Events: DVT study reviewed. CT angiogram of the chest ordered with positive PE to right and left lower lobes. Patient was placed on anticoagulation two days ago with Lovenox. Transitioned to Eliquis today -Cepacol lozenges for throat pain. IV lorazepam for anxiety -increase physical therapy Gentle IV hydration -pain management -PPI -DVT prophylaxis -social service consultation for DC planning with home health services, ostomy supplies Plan discussed with: Other Date of Service: Aug 05, 2025 Billing Provider: DESTINEE MARTI MD Common Visit Codes: [id number] INP/OBS CARE(HIGH) DESTINEE MARTI MD Aug 05, 2025 10:56
--- NOTE | 2025-08-05 12:20 | DVHPN2 ---
Progress Note - Surgical Date Seen: Aug 05, 2025 Post op day Post op day: 4 Subjective Patient reports: Feels better (Patient doing well, no complaints, tolerated clear liquid diet yesterday, now producing stool per ostomy) Review of Systems: Deferred Objective Vital signs Vital Sign Date Time Temp Pulse Resp B/P (MAP) Pulse Ox O2 Delivery O2 Flow Rate FiO2 08/05/25 10:41 96 138/59 08/05/25 09:00 98.5 16 97 98.5 08/05/25 08:00 Room Air* 0 21 Total Intake and Output 08/04/25 08/04/25 08/05/25 15:00 23:00 07:00 Intake Total 50 ml 100 ml 900 ml Balance 50 ml 100 ml 900 ml Medications Current Medications Medications Dose Ordered Sig/Latisha Route Start Time Stop Time Status Last Admin Dose Admin Ondansetron HCl 4 mg Q8HPRN PRN IV 07/31/25 02:15 08/01/25 07:06 4 MG Lidocaine HCl 0.5 ml ONCE PRN ID 07/31/25 15:15 07/31/25 12:05 0.5 ML Morphine Sulfate 2 mg Q4HPRN PRN IV 07/31/25 17:50 07/31/25 18:03 2 MG Diagnostic Test (Pha) 1 strip Q6HR 08/02/25 00:00 Hold 08/04/25 17:43 1 STRIP Insulin Human Regular FOLLOW SLIDING SCALE Q6HR SC 08/02/25 00:00 Hold 08/04/25 18:52 2 UNITS Dextrose 50 ml UD IV 08/01/25 22:00 Hold Morphine Sulfate 1 mg Q4HP PRN IV 08/02/25 10:45 08/02/25 10:43 1 MG Throat Lozenges 1 tessa Q2HP PRN MT 08/03/25 11:15 Lorazepam 0.5 mg Q8HP PRN IV 08/03/25 11:15 Atenolol 25 mg BID PO 08/04/25 22:00 08/05/25 10:41 25 MG Labetalol HCl 10 mg Q2HPRN PRN IV 08/04/25 16:45 08/05/25 01:47 10 MG Enoxaparin Sodium 80 mg Q12HR SC 08/05/25 10:00 08/05/25 10:41 80 MG Laboratory Laboratory Tests 08/05/25 04:44 08/04/25 05:44 Test 08/05/25 04:44 Range/Units Serum Glucose 123 H 74-106 mg/dL Microbiology Date/Time Source Procedure Growth Status 08/01/25 17:30 Urine - [place] Urine Culture - Final Complete 07/31/25 15:00 Nose MRSA Screen - Final Complete 07/31/25 09:30 Blood Blood Culture - Final NO GROWTH AFTER 5 DAYS OF INCUBATION. Complete Examination: GENERAL:Normal (AAO x3), LUNGS:Normal (Nonlabored breathing with symmetric expansion), ABDOMEN:Normal (Nondistended, soft, depressible, midline incision with rene in place and without surrounding signs of infection, left abdominal ostomy with pink mucosa and stool in bag, appropriate tenderness) Labs and/or images reviewed: Labs reviewed by me Problem List/Assessment/Plan Assessment and Plan Mrs. Mendosa is a 54-year-old female who is currently postop day 4 from exploratory laparotomy with left colectomy and end colostomy. Interval: Patient doing well, tolerated clear liquid diet, ostomy producing stool, ambulating. We will advance diet today to full liquid diet, patient will need social service for ostomy supplies for home. Possible going home tomorrow versus Saturday. 1. Advanced to full liquid diet 2. Social service as to coordinate ostomy supplies for home 3. Discontinue PICC line 4. Out of bed and ambulate 5. Okay to shower 6. DC IV antibiotics My Orders My Orders Orders - MERRITT UGARTE MD Procedure Category Date Status Time Lt Upper Dvt US 08/04/25 Resulted 11:49 Clamp Ngt ORDERS 08/04/25 Transmitted 13:05 Full Liq Diet DIET 08/05/25 Transmitted Lunch Communication Order ORDERS 08/05/25 Transmitted 11:10 Plan discussed with Plan discussed with: Patient Visit Coding Surgery Date of Service if different f: Aug 05, 2025 Billing Provider: MERRITT UGARTE MD Surgery Visit Codes: [id number] INP/OBS CARE(HIGH) MERRITT UGARTE MD Aug 05, 2025 12:20
[2025-08-06] VITALS (9 sets, daily range): BP systolic 94–166; BP diastolic 66–98; PULSE 69–96; RESP 15–18; TEMP 97–98.7; O2SAT 92–98
[2025-08-06] MEDS: IOHEXOL 350 MG/ML 100ML IJ ONE (10:26)
[2025-08-06] MEDS: APIXABAN 5 MG TAB PO SCH (10:41)
--- NOTE | 2025-08-06 11:09 | DVH ---
INDICATION: rule out PE, positive DVT TECHNIQUE: CT axial images of the chest are obtained with intravenous contrast per CT angiogram protocol. Coronal and sagittal reformats were obtained. Radiation Dose Information: CTDI volume is 23.21 mGy. Dose-length product is 704.08 mGy*cm COMPARISON: DVT ultrasound 08/04/2025 FINDINGS: Suboptimal opacification of the pulmonary arteries. Pulmonary embolism to the Right lower lobe segmental and subsegmental branches. Probable pulmonary emboli 2 left lower lobe subsegmental branches. Trachea patent. No pneumothorax. Bilateral atelectasis. 6 mm right lower lobe calcified nodule. 3 mm left lower lobe calcified nodule. Coronary artery calcification disease. 8 mm right thyroid nodule. Other smaller bilateral thyroid nodules. No supraclavicular lymphadenopathy. There is stranding surrounding the left subclavian / axillary vein with occlusive deep vein thrombosis. There is thrombus within the left brachiocephalic vein [id number] thoracic degenerative disc disease. IMPRESSION: Pulmonary emboli to the right lower lobe and likely as well to the Left lower lobe. Thrombus within the left brachiocephalic vein. Stranding surrounding the left subclavian and axillary veins consistent with previous findings of DVT in the left subclavian, axillary veins. Bilateral thyroid nodules which can be further characterized with thyroid ultrasound in the nonemergent setting. Coronary artery calcification disease. Other findings as described. Findings of pulmonary emboli and left brachiocephalic vein thrombus were communicated to patient's nurse, Danica, at 11:06 a.m. on 08/06/2025.
--- NOTE | 2025-08-06 15:18 | DVHPN2 ---
Subjective Patient denies any symptoms at this time. Reviewed: Care Plan, H&P, Labs, Medications Changes from previous H/P or p: No Changes General: Per HPI Objective Vitals Vital Signs Date Time Temp Pulse Resp B/P (MAP) Pulse Ox O2 Delivery O2 Flow Rate FiO2 08/06/25 13:19 98.2 90 16 158/88 (111) 98 98.2 08/06/25 08:00 Room Air* 0 21 Intake/Output Intake and Output 08/06/25 07:00 Intake Total 1050 ml Output Total 400 ml Balance 650 ml Intake Oral 1050 ml Stool Total 300 ml Gastric Drainage Total 100 ml # Voids 3 General Appearance: Alert, Oriented X3, Cooperative, mild distress HEENT: Atraumatic, PERRLA Lungs: Clear to auscultation, Normal air movement Cardiovascular: Normal S1, Normal S2, Other (Sinus tachycardia) Abdomen: Normal bowel sounds, Soft, No tenderness, No hepatospenomegaly, No masses Genitourinary: No Apparent Abnormalities Musculoskeletal: Normal sensory function, Normal motor function Skin: Dry, Intact Psych/Mental Status: Mental status NL, Other (Patient is anxious) Medications Current Medications Medications Dose Ordered Sig/Latisha Route Start Time Stop Time Status Last Admin Dose Admin Ondansetron HCl 4 mg Q8HPRN PRN IV 07/31/25 02:15 08/01/25 07:06 4 MG Lidocaine HCl 0.5 ml ONCE PRN ID 07/31/25 15:15 07/31/25 12:05 0.5 ML Morphine Sulfate 2 mg Q4HPRN PRN IV 07/31/25 17:50 07/31/25 18:03 2 MG Morphine Sulfate 1 mg Q4HP PRN IV 08/02/25 10:45 08/02/25 10:43 1 MG Throat Lozenges 1 tessa Q2HP PRN MT 08/03/25 11:15 Lorazepam 0.5 mg Q8HP PRN IV 08/03/25 11:15 Atenolol 25 mg BID PO 08/04/25 22:00 08/06/25 10:40 25 MG Labetalol HCl 10 mg Q2HPRN PRN IV 08/04/25 16:45 08/05/25 01:47 10 MG Apixaban 10 mg BID PO 08/06/25 10:00 08/13/25 09:59 08/06/25 10:41 10 MG Apixaban 5 mg BID PO 08/13/25 10:00 Amlodipine Besylate 10 mg DAILY PO 08/06/25 10:00 08/06/25 10:40 10 MG Laboratory Results Laboratory Tests 08/04/25 05:44 08/05/25 04:44 Urinalysis Test 07/31/25 08:20 08/01/25 17:30 Urine Hyaline Casts Mod /lpf (0 - 2) Urine Color Yellow (Yellow) Urine Clarity Turbid (Clear) H Urine pH 5.5 (5.0-9.0) Urine Specific [place] 1.026 (1.001-1.035) Urine Protein 1+ (Negative) H Urine Ketones 1+ (Negative) H Urine Blood 2+ /uL (Negative) H Urine Nitrite Negative (Negative) Urine Bilirubin Negative (Negative) Urine Urobilinogen Normal mg/dL (Negative) Urine Leukocyte Esterase 1+ /uL (Negative) Urine RBC 117 /hpf (0 - 4) Urine Microscopic WBC 24 /HPF (0-5) H Urine Squamous Epithelial Cells Few /hpf (<5) Urine Amorphous Crystals Few /hpf (None Seen) Urine Bacteria Few /hpf (None Seen) H Urine Mucus Few (None Seen) Urine Glucose 2+ mg/dL (Normal) H Microbiology Microbiology Date/Time Source Procedure Growth Status 08/01/25 17:30 Urine - [place] Urine Culture - Final Complete 07/31/25 15:00 Nose MRSA Screen - Final Complete 07/31/25 09:30 Blood Blood Culture - Final NO GROWTH AFTER 5 DAYS OF INCUBATION. Complete Labs and/or images reviewed: Labs reviewed by me, Image(s) reviewed by me Assessment/Plan Assessment/Plan Impression: -bowel obstruction secondary to mass, status post colon resection with colostomy creation -sickle cell trait -primary hypertension -sirs response secondary to surgery -acute kidney injury, vasomotor nephropathy -possible beta fabiana withdrawal -DVT to left upper extremity around PICC line -positive pulmonary embolism Plan: Events: DVT study reviewed. CT angiogram of the chest ordered with positive PE to right and left lower lobes. Patient was placed on anticoagulation two days ago with Lovenox. Transitioned to Eliquis today -Cepacol lozenges for throat pain. IV lorazepam for anxiety -increase physical therapy Gentle IV hydration -pain management -PPI -DVT prophylaxis -social service consultation for DC planning with home health services, ostomy supplies Total time spent with patient discussing and formulating plan of care: 35 minutes. This medical document was created using an electronic medical record system with [employer] dictation system. Although this document has been carefully reviewed, there may still be some phonetic and typographical errors. These areas are purely typographical due to imperfections of the software programs, and do not reflect any compromise in the patient's medical care. Plan discussed with: Patient, Other (RN) My Orders Orders - MELECIO ESQUIVEL NP Procedure Category Date Status Time Apixaban (Eliquis) PHA 08/06/25 In Process 10:[address] 08/06/25 Resulted Contrast 09:34 Amlodipine Tablet PHA 08/06/25 In Process (Norvasc Tablet) 10:00 Apixaban (Eliquis) PHA 08/13/25 In Process 10:00 Date of Service: Aug 06, 2025 Billing Provider: MELECIO ESQUIVEL NP Common Visit Codes: [id number] INP/OBS CARE(HIGH) MELECIO ESQUIVEL NP Aug 06, 2025 15:17
--- NOTE | 2025-08-06 15:25 | DVHPN2 ---
Progress Note - Surgical Date Seen: Aug 06, 2025 Post op day Post op day: 5 Subjective Patient reports: No new complaints (Feels great and without any complaints) Review of Systems: Deferred Objective Vital signs Vital Sign Date Time Temp Pulse Resp B/P (MAP) Pulse Ox O2 Delivery O2 Flow Rate FiO2 08/06/25 13:19 98.2 90 16 158/88 (111) 98 98.2 08/06/25 08:00 Room Air* 0 21 Total Intake and Output 08/05/25 08/05/25 08/06/25 15:00 23:00 07:00 Intake Total 700 ml 350 ml Output Total 350 ml 50 ml Balance 350 ml 300 ml Medications Current Medications Medications Dose Ordered Sig/Latisha Route Start Time Stop Time Status Last Admin Dose Admin Ondansetron HCl 4 mg Q8HPRN PRN IV 07/31/25 02:15 08/01/25 07:06 4 MG Lidocaine HCl 0.5 ml ONCE PRN ID 07/31/25 15:15 07/31/25 12:05 0.5 ML Morphine Sulfate 2 mg Q4HPRN PRN IV 07/31/25 17:50 07/31/25 18:03 2 MG Morphine Sulfate 1 mg Q4HP PRN IV 08/02/25 10:45 08/02/25 10:43 1 MG Throat Lozenges 1 tessa Q2HP PRN MT 08/03/25 11:15 Lorazepam 0.5 mg Q8HP PRN IV 08/03/25 11:15 Atenolol 25 mg BID PO 08/04/25 22:00 08/06/25 10:40 25 MG Labetalol HCl 10 mg Q2HPRN PRN IV 08/04/25 16:45 08/05/25 01:47 10 MG Apixaban 10 mg BID PO 08/06/25 10:00 08/13/25 09:59 08/06/25 10:41 10 MG Apixaban 5 mg BID PO 08/13/25 10:00 Amlodipine Besylate 10 mg DAILY PO 08/06/25 10:00 08/06/25 10:40 10 MG Sodium Chloride 1,000 ml @ 75 mls/hr [id number] IV 08/06/25 15:15 08/06/25 21:54 UNV Laboratory Laboratory Tests 08/05/25 04:44 08/04/25 05:44 Test 08/05/25 04:44 Range/Units Serum Glucose 123 H 74-106 mg/dL Microbiology Date/Time Source Procedure Growth Status 08/01/25 17:30 Urine - [place] Urine Culture - Final Complete 07/31/25 15:00 Nose MRSA Screen - Final Complete 07/31/25 09:30 Blood Blood Culture - Final NO GROWTH AFTER 5 DAYS OF INCUBATION. Complete Examination: GENERAL:Normal (AAO x3), LUNGS:Normal (Nonlabored breathing with symmetric expansion), ABDOMEN:Normal (Nondistended, soft, depressible, incision with rene in place and without surrounding signs of infection, BHARAT drain with minimal serous output, ostomy with pink mucosa and stool production in bag, nontender) Labs and/or images reviewed: Labs reviewed by me Problem List/Assessment/Plan Assessment and Plan Mrs. Mendosa is a 54-year-old female who is currently postop day 5 from exploratory laparotomy with left colectomy and end colostomy. Interval: Patient is doing very well, tolerated full liquid diet, we will advance her to regular diet, she is ambulating, having a stool production, pain completely under control. Once she tolerates regular diet she will be cleared for discharge per surgical standpoint, but we will need social service for home health set up for ostomy education and supplies. 1. Advanced to regular diet 2. Social service as to coordinate ostomy supplies for home 3. Discontinue PICC line 4. Out of bed and ambulate 5. Okay to shower 6. DC IV antibiotics My Orders My Orders Orders - MERRITT UGARTE MD Procedure Category Date Status Time * Director Of Midwifery/Staff Midwife CONS 08/05/25 Transmitted Consult Regular Diet DIET 08/06/25 Transmitted Lunch Plan discussed with Plan discussed with: Patient Visit Coding Surgery Date of Service if different f: Aug 06, 2025 Billing Provider: MERRITT UGARTE MD Surgery Visit Codes: [id number] INP/OBS CARE(HIGH) MERRITT UGARTE MD Aug 06, 2025 15:25
[2025-08-06] MEDS: SODIUM CHLORIDE 0.9% 1,000 ML IV SCH (16:10)
--- NOTE | 2025-08-06 16:44 | DVHPN2 ---
Progress Note - Dictate Date Seen: Aug 06, 2025 Medical Necessity Reason Pt with a Central, PICC or Fol: No Subjective POD # 5 S/P Exploratory laparotomy with partial left colectomy with colostomy and appendectomy Out of bed to chair, started on a diet Colostomy is functional vital signs Vital Sign Date Time Temp Pulse Resp B/P (MAP) Pulse Ox O2 Delivery O2 Flow Rate FiO2 08/06/25 13:19 98.2 90 16 158/88 (111) 98 98.2 08/06/25 08:00 Room Air* 0 21 Total Intake and Output 08/05/25 08/05/25 08/06/25 15:00 23:00 07:00 Intake Total 700 ml 350 ml Output Total 350 ml 50 ml Balance 350 ml 300 ml medications Current Medications Medications Dose Ordered Sig/Latisha Route Start Time Stop Time Status Last Admin Dose Admin Ondansetron HCl 4 mg Q8HPRN PRN IV 07/31/25 02:15 08/01/25 07:06 4 MG Lidocaine HCl 0.5 ml ONCE PRN ID 07/31/25 15:15 07/31/25 12:05 0.5 ML Morphine Sulfate 2 mg Q4HPRN PRN IV 07/31/25 17:50 07/31/25 18:03 2 MG Morphine Sulfate 1 mg Q4HP PRN IV 08/02/25 10:45 08/02/25 10:43 1 MG Throat Lozenges 1 tessa Q2HP PRN MT 08/03/25 11:15 Lorazepam 0.5 mg Q8HP PRN IV 08/03/25 11:15 Atenolol 25 mg BID PO 08/04/25 22:00 08/06/25 10:40 25 MG Labetalol HCl 10 mg Q2HPRN PRN IV 08/04/25 16:45 08/05/25 01:47 10 MG Apixaban 10 mg BID PO 08/06/25 10:00 08/13/25 09:59 08/06/25 10:41 10 MG Apixaban 5 mg BID PO 08/13/25 10:00 Amlodipine Besylate 10 mg DAILY PO 08/06/25 10:00 08/06/25 10:40 10 MG Sodium Chloride 1,000 ml @ 75 mls/hr [id number] IV 08/06/25 15:15 08/06/25 21:54 08/06/25 16:10 75 MLS/HR objective GEN: NAD; lungs clear, CVS S1-S2 regular rate rhythm ABD: surgical dressings clean and dry. drain 50 mL last night. 90 mL serosang today. UOP 900 mL laboratory and microbiology Laboratory Tests 08/05/25 04:44 08/04/25 05:44 Test 08/05/25 04:44 Range/Units Serum Glucose 123 H 74-106 mg/dL Problems(with codes): (1) Stricture of descending colon (2) Microcytic anemia (3) Intractable abdominal pain (4) Small bowel obstruction (5) Hypertension Prognosis Plan Advance diet as tolerated Follow up in my office in 2-3 months Await final pathology report Patient will be scheduled for elective preop screening colonoscopy via colostomy prior to reversal of colostomy Dietary Evaluation Review Comments: TPN to meet her needs @77-96g protein, 1600-1920kcal kcal Expected Outcomes/Goals: recover from bowel obstruction Plan discussed with: Patient, Other (Nurse) RA CARTER MD Aug 06, 2025 16:44
[2025-08-07 01:00] VITALS: BP 163/91; PULSE 80; RESP 14; TEMP 98; O2SAT 97
[2025-08-07 05:00] VITALS: BP_SYST 149; BP_SYST 90; BP_DIAS 59; BP_DIAS 80; PULSE 76; PULSE 82; RESP 12; RESP 16; TEMP 97.9; TEMP 98.2; O2SAT 97; O2SAT 98
[2025-08-07 08:11] VITALS: RESP 16
[2025-08-07 08:36] VITALS: BP 155/81; PULSE 87; RESP 20; TEMP 98.5; O2SAT 95
[2025-08-07] MEDS ORDERED: APIX5TAB PO (10:38)
--- NOTE | 2025-08-07 10:44 | DVHDS2 ---
Discharge Summary Date of Admission Jul 30, 2025 at 23:17 Date of Discharge: Aug 07, 2025 Admitting Diagnosis Partial large bowel obstruction Labs/Diagnostic Data: Laboratory Results Test 08/05/25 04:44 08/04/25 17:41 08/04/25 05:44 08/01/25 17:30 Sodium Level 147 mmol/L (136-145) Potassium Level 3.6 mmol/L (3.5-5.1) Chloride Level 109 mmol/L (98-107) Carbon Dioxide Level 27 mmol/L (20-31) Anion Gap 11 (5-15) Blood Urea Nitrogen 9 mg/dL (9-23) Creatinine 0.92 mg/dL (0.550-1.02) Glomerular Filtration Rate Calc 73 mL/min (>90) BUN/Creatinine Ratio 9.8 (10.0-20.0) Serum Glucose 123 mg/dL (74-106) Calcium Level 9.0 mg/dL (8.7-10.4) Phosphorus Level 3.5 mg/dL (2.4-5.1) Magnesium Level 1.9 mg/dL (1.6-2.6) Total Bilirubin 0.8 mg/dL (0.2-1.0) Aspartate Amino Transferase (AST) 31 U/L (13-40) Alanine Aminotransferase (ALT) 21 U/L (7-40) Alkaline Phosphatase 60 U/L (46-116) Total Protein 6.8 g/dL (5.7-8.2) Albumin 3.5 g/dL (3.2-4.8) POC Glucose 149 mg/dl (70-106) White Blood Count 12.6 10^3/uL (4.4-10.8) Red Blood Count 4.94 10^6/uL (4.0-5.20) Hemoglobin 10.2 g/dL (12.2-16.2) Hematocrit 33.0 % (36.0-46.0) Mean Corpuscular Volume 66.8 fL (80.0-100.0) Mean Corpuscular Hemoglobin 20.6 pg (28.0-32.0) Mean Corpuscular Hemoglobin Concent 30.9 g/dL (32.0-36.0) Red Cell Distribution Width 25.5 % (11.8-14.3) Platelet Count 189 10^3/uL (140-450) Mean Platelet Volume 8.1 fL (6.9-10.8) Neutrophils (%) (Auto) 77.2 % (37.0-80.0) Lymphocytes (%) (Auto) 15.3 % (10.0-50.0) Monocytes (%) (Auto) 5.7 % (0.0-12.0) Eosinophils (%) (Auto) 1.6 % (0.0-7.0) Basophils (%) (Auto) 0.2 % (0.0-2.0) Neutrophils # (Auto) 9.8 10 ^3/uL (1.6-8.6) Lymphocytes # (Auto) 1.9 10 ^3/uL (0.4-5.4) Monocytes # (Auto) 0.7 10 ^3/uL (0-1.3) Eosinophils # (Auto) 0.2 10 ^3/uL (0-0.8) Basophils # (Auto) 0 10 ^3/uL (0-0.2) Nucleated Red Blood Cells 0.0 % Platelet Estimate Adequate Hypochromasia (manual) Marked Poikilocytosis (manual) Slight Anisocytosis (manual) Moderate Microcytosis Marked Target Cells Few Ovalocytes Few Schistocytes Few Urine Color Yellow (Yellow) Urine Clarity Turbid (Clear) Urine pH 5.5 (5.0-9.0) Urine Specific [place] 1.026 (1.001-1.035) Urine Protein 1+ (Negative) Urine Ketones 1+ (Negative) Urine Blood 2+ /uL (Negative) Urine Nitrite Negative (Negative) Urine Bilirubin Negative (Negative) Urine Urobilinogen Normal mg/dL (Negative) Urine Leukocyte Esterase 1+ /uL (Negative) Urine RBC 117 /hpf (0 - 4) Urine Microscopic WBC 24 /HPF (0-5) Urine Squamous Epithelial Cells Few /hpf (<5) Urine Amorphous Crystals Few /hpf (None Seen) Urine Bacteria Few /hpf (None Seen) Urine Mucus Few (None Seen) Urine Glucose 2+ mg/dL (Normal) Test 08/01/25 04:50 07/31/25 08:20 07/31/25 04:48 07/30/25 19:10 Triglycerides Level 89 mg/dL (< 150) Carcinoembryonic Antigen 7.47 ng/mL (<=5.0) Urine Hyaline Casts Mod /lpf (0 - 2) Urine Opiates Screen Pos (NEGATIVE) Urine Fentanyl Screen Neg (NEGATIVE) Urine Barbiturates Screen Neg (NEGATIVE) Urine Phencyclidine Screen Neg (NEGATIVE) Urine Amphetamines Screen Neg (NEGATIVE) Urine Benzodiazepines Screen Neg (NEGATIVE) Urine Cocaine Screen Neg (NEGATIVE) Urine Cannabinoids Screen Neg (NEGATIVE) Erythrocyte Sedimentation Rate 37 mm/hr (0-20) Prothrombin Time 11.2 sec (9.3-11.8) Prothrombin Time INR 1.06 (0.9-1.15) Activated Partial Thromboplast Time 23.9 SEC (24.5-34.5) Hemoglobin A1c 5.7 % A1C (<5.7) Iron Level 22 ug/dL (50-170) Total Iron Binding Capacity 250 ug/dL (250-425) Percent Iron Saturation 8.8 % (15-50) Ferritin 58.0 ng/mL (10-291) C-Reactive Protein High Sensitivity 4.79 mg/dL (<1.0) Vitamin B12 Level 670 pg/mL (211-911) Vitamin D 25-Hydroxy 40.1 ng/mL (30.0-100) Lipase 30 U/L (12-53) Other Laboratory Tests 08/05/25 04:44 08/04/25 05:44 Brief Hx & Hospital Course: History of Present Illness Melody Leon is a 54-year-old female with past medical history of hypertension, sickle cell trait presented with complaints of abdominal pain and vomiting since 10 days. Patient was admitted at [facility] 10 days ago for diverticulitis. She was sent home with Flagyl and levofloxacin. Patient states that the pain worsened after she was done with antibiotics. She also complains of associated nausea and decreased appetite. She denies constipation or diarrhea. Patient states that she has lost 10 lb in 1 month. Course of hospitalization: Patient was seen by general surgeon, Dr. Adamson, for which patient underwent exploratory laparotomy with findings of large colonic mass. Patient ended up having placement of colostomy as well as removal of large descending colon mass. Postoperatively patient was placed on TPN, with the patient having positive bowel sounds as well as movement of stool through her colostomy. Diet has been advanced. Patient had PICC line, with swelling noted to area. DVT was appreciated after ultrasound was performed of the extremity. CT angiogram of the chest was also performed, with the patient also noted to have positive pulmonary embolisms to both right and left lower lobes. Initially she was placed on therapeutic dose Lovenox which was transitioned to Eliquis. Patient has been ambulating to the bathroom without difficulty. She will have all drains removed. She will be continued on Eliquis to complete 10 mg p.o. twice a day for a full seven day course which was started in the hospital, as well as transitioning to 5 mg p.o. b.i.d.. Follow up appointments will be made with the surgeon Dr. Adamson, as well as Gastroenterology Dr. Bindu Sims in 3-4 months. She is also instructed to follow up with her PCP in 1-2 weeks. She is agreeable with discharge plan. All questions answered. Physical examination General: Alert and Oriented x3. No acute distress. Well-nourished. Eyes: EOMI. Anicteric. HENT: Moist mucous membranes. Lungs: Clear to auscultation bilaterally. No accessory muscle use. Cardiovascular: Regular rate and rhythm. No murmur. No JVD. Abdomen: Soft, non-tender and non-distended. No palpable masses. Surgical site benign. Colostomy appropriate with loose brown stool Extremities: No edema. Non-tender. Skin: No rashes or lesions. Warm. Neurologic: No focal neurological deficits. CN II-XII grossly intact, but not individually tested. Psychiatric: Cooperative. Appropriate mood and affect. Total time spent with patient discussing and formulating plan of care: 35 minutes. This medical document was created using an electronic medical record system with [employer] dictation system. Although this document has been carefully reviewed, there may still be some phonetic and typographical errors. These areas are purely typographical due to imperfections of the software programs, and do not reflect any compromise in the patient's medical care. Consults/Reason for consult Gastroenterology: Colonic mass General surgery: Bowel obstruction Operations or Procedures Exploratory laparotomy with creation of colostomy and colonic mass removal Condition at Discharge: Guarded Final Diagnosis/Problems List Large mid descending colon mass causing obstruction -sickle cell trait -primary hypertension -sirs response secondary to surgery -acute kidney injury, vasomotor nephropathy -possible beta fabiana withdrawal -DVT to left upper extremity around PICC line -positive pulmonary embolism Discharge Disposition: Home with Health Services Discharge Instruct/Medications Diet: Regular Activity: No Restrictions, As Tolerated Follow Up/Referral: Follow up with Dr. Adamson in one week Follow up with Dr. Bindu Sims in three weeks Follow up with PCP in 1-2 weeks Medications: Eliquis 10 mg p.o. b.i.d. for 5.5 days Eliquis 5 mg p.o. b.i.d. thereafter Scheduled Amlodipine Besylate (Amlodipine Besylate), 1 TAB PO DAILY Amlodipine Besylate (Amlodipine Besylate), 1 TAB PO DAILY Apixaban Base (Eliquis), 5 MG PO BID Apixaban Base (Eliquis), 10 MG PO BID 36 Discharge Statement: "Patient was advised to return to the ER or call 911 if any headaches, dizziness, shortness of breath, chest pain, abdominal pain, bleeding, fevers, or worsening of medical condition. Patient was counseled about treatment plan, medications, possible side effects, patientverbalized understanding. All questions were answered to the best of my ability. This discharge took greater then 30 minutes in planning, reviewing documentation, counseling the patient, and discussing with other team members." ASSESSMENT ASSESSMENT Assessment Large mid descending colon mass causing obstruction Date of Service: Aug 07, 2025 Billing Provider: MELECIO ESQUIVEL NP Common Visit Codes: 61064-SIJ/OBS DISCH DAY >30min MELECIO ESQUIVEL NP Aug 07, 2025 10:44
[2025-08-07 11:08] VITALS: BP 155/81; PULSE 87; TEMP 36.9
--- NOTE | 2025-08-07 11:27 | DVHPN2 ---
Progress Note - Surgical Date Seen: Aug 07, 2025 Post op day Post op day: 6 Subjective Patient reports: Feels better (Patient feeling good, wants to go home tolerating regular diet) Review of Systems: Deferred Objective Vital signs Vital Sign Date Time Temp Pulse Resp B/P (MAP) Pulse Ox O2 Delivery O2 Flow Rate FiO2 08/07/25 11:08 36.9 87 08/07/25 09:06 155/81 08/07/25 08:36 20 95 08/07/25 08:11 Room Air* 0 21 Total Intake and Output 08/06/25 08/06/25 08/07/25 15:00 23:00 07:00 Intake Total 1000 ml 600 ml Output Total 53 ml Balance -53 ml 1000 ml 600 ml Medications Current Medications Medications Dose Ordered Sig/Latisha Route Start Time Stop Time Status Last Admin Dose Admin Ondansetron HCl 4 mg Q8HPRN PRN IV 07/31/25 02:15 08/01/25 07:06 4 MG Lidocaine HCl 0.5 ml ONCE PRN ID 07/31/25 15:15 07/31/25 12:05 0.5 ML Morphine Sulfate 2 mg Q4HPRN PRN IV 07/31/25 17:50 07/31/25 18:03 2 MG Morphine Sulfate 1 mg Q4HP PRN IV 08/02/25 10:45 08/02/25 10:43 1 MG Throat Lozenges 1 tessa Q2HP PRN MT 08/03/25 11:15 Lorazepam 0.5 mg Q8HP PRN IV 08/03/25 11:15 Atenolol 25 mg BID PO 08/04/25 22:00 08/07/25 09:06 25 MG Labetalol HCl 10 mg Q2HPRN PRN IV 08/04/25 16:45 08/07/25 00:41 10 MG Apixaban 10 mg BID PO 08/06/25 10:00 08/13/25 09:59 08/07/25 09:07 10 MG Apixaban 5 mg BID PO 08/13/25 10:00 Amlodipine Besylate 10 mg DAILY PO 08/06/25 10:00 08/07/25 09:06 10 MG Laboratory Laboratory Tests 08/05/25 04:44 08/04/25 05:44 Test 08/05/25 04:44 Range/Units Serum Glucose 123 H 74-106 mg/dL Microbiology Date/Time Source Procedure Growth Status 08/01/25 17:30 Urine - [place] Urine Culture - Final Complete 07/31/25 15:00 Nose MRSA Screen - Final Complete 07/31/25 09:30 Blood Blood Culture - Final NO GROWTH AFTER 5 DAYS OF INCUBATION. Complete Examination: GENERAL:Normal (AAO x3), LUNGS:Normal (Nonlabored breathing with symmetric expansion), ABDOMEN:Normal (Nondistended, soft, depressible midline incision with rene in place and without surrounding signs of infection, right lower quadrant drain with very minimal serous output, who left abdominal ostomy with pink mucosa and stool in bag) Labs and/or images reviewed: Image(s) reviewed by me (CTA from yesterday shows thrombus in the brachiocephalic vein and be basilar lower lobe PEs) Problem List/Assessment/Plan Assessment and Plan Mrs. Mendosa is a 54-year-old female who is currently postop day 6 from exploratory laparotomy with left colectomy and end colostomy. Interval: From abdominal surgery, patient is cleared for discharge, she is tolerating regular diet, ambulating, pain well controlled, having stool production per ostomy, incision without any signs of infection. BHARAT drain with very minimal serous output, please DC drain. CTA chest from yesterday was reviewed and is shows bilateral bibasilar PEs and a brachiocephalic vein thrombus, patient was started on Eliquis. 1. Cleared for discharge per surgical standpoint 2. Social service as to coordinate ostomy supplies for home 3. Continue Eliquis 4. Discontinue BHARAT drain Upon discharge: 1. No lifting over 10 lb for 8 weeks 2. Before discharge patient needs ostomy education 3. For baseline pain control Tylenol and/or ibuprofen 4. Recommend [place] 5-325 mg 1 tab p.o. PRN breakthrough pain 5. May shower, no swimming and/or bathing. 6. No driving while taking narcotics 7. Follow up with Dr. Adamson at surgery Clinic My Orders My Orders Orders - MERRITT UGARTE MD Procedure Category Date Status Time Regular Diet DIET 08/06/25 Transmitted Lunch Plan discussed with Plan discussed with: Patient Visit Coding Surgery Date of Service if different f: Aug 07, 2025 Billing Provider: MERRITT UGARTE MD Surgery Visit Codes: [id number] INP/OBS CARE(HIGH) MERRITT UGARTE MD Aug 07, 2025 11:27
--- NOTE | 2025-08-07 20:14 | DVHPN2 ---
Progress Note - Dictate Date Seen: Aug 07, 2025 (Late entryTime of visit 10:00 a.m.) Medical Necessity Reason Pt with a Central, PICC or Fol: No Subjective POD # 6 S/P Exploratory laparotomy with partial left colectomy with colostomy and appendectomy Out of bed to chair, started on a diet Colostomy is functional vital signs Vital Sign Date Time Temp Pulse Resp B/P (MAP) Pulse Ox O2 Delivery O2 Flow Rate FiO2 08/07/25 11:08 36.9 87 08/07/25 09:06 155/81 08/07/25 08:36 20 95 08/07/25 08:11 Room Air* 0 21 Total Intake and Output 08/06/25 08/06/25 08/07/25 15:00 23:00 07:00 Intake Total 1000 ml 600 ml Output Total 53 ml Balance -53 ml 1000 ml 600 ml objective GEN: NAD; lungs clear, CVS S1-S2 regular rate rhythm ABD: surgical dressings clean and dry. drain 50 mL last night. 90 mL serosang today. UOP 900 mL laboratory and microbiology Laboratory Tests 08/05/25 04:44 08/04/25 05:44 Test 08/05/25 04:44 Range/Units Serum Glucose 123 H 74-106 mg/dL Problems(with codes): (1) Pulmonary embolism (2) Stricture of descending colon (3) Microcytic anemia (4) Intractable abdominal pain (5) Small bowel obstruction Prognosis Plan Advance diet as tolerated Follow up in my office in 2-3 months Await final pathology report Patient will be scheduled for elective preop screening colonoscopy via colostomy prior to reversal of colostomy Dietary Evaluation Review Comments: TPN to meet her needs @77-96g protein, 1600-1920kcal kcal Expected Outcomes/Goals: recover from bowel obstruction Plan discussed with: Patient RA CARTER MD Aug 07, 2025 20:14
[2025-08-11] MEDS ORDERED: AUG875T PO (13:58)
[2025-08-13] MEDS ORDERED: APIXABAN 5 MG TAB PO SCH (10:00)
== END 2025-08-07 13:40 | disposition home health service (06) | DRG 231 ==
LOC: ER 18:17 → OVERFLOW 23:17 → WEST WING 07-31 02:22 → DOU 08-01 14:10 → TELE-CENTR 08-02 16:14 → CENTRAL 08-03 23:16
PROVIDERS: ADMIT Nurse Practitioner Acute Care; ATTEND Nurse Practitioner Acute Care
PROC: 02HV33Z Insertion of Infusion Device into Superior Vena Cava, Percutaneous Approach (ICD-10-PCS; 2025-07-31)
PROC: B548ZZA Ultrasonography of Superior Vena Cava, Guidance (ICD-10-PCS; 2025-07-31)
PROC: 0D9670Z Drainage of Stomach with Drainage Device, Via Natural or Artificial Opening (ICD-10-PCS; 2025-07-31)
PROC: 0DBM0ZZ Excision of Descending Colon, Open Approach (ICD-10-PCS; 2025-08-01)
PROC: 0DTJ0ZZ Resection of Appendix, Open Approach (ICD-10-PCS; 2025-08-01)
PROC: 0DBN0ZZ Excision of Sigmoid Colon, Open Approach (ICD-10-PCS; 2025-08-01)
PROC: 30233N1 Transfusion of Nonautologous Red Blood Cells into Peripheral Vein, Percutaneous Approach (ICD-10-PCS; 2025-08-01)
PROC: 0D1L0Z4 Bypass Transverse Colon to Cutaneous, Open Approach (ICD-10-PCS; principal; 2025-08-01 09:31)
DX: K56.690 Other partial intestinal obstruction (principal); N17.0 Acute kidney failure with tubular necrosis; I26.99 Other pulmonary embolism without acute cor pulmonale; I82.622 Acute embolism and thrombosis of deep veins of left upper extremity; D57.1 Sickle-cell disease without crisis; D50.9 Iron deficiency anemia, unspecified; E11.65 Type 2 diabetes mellitus with hyperglycemia; Z79.01 Long term (current) use of anticoagulants; K57.32 Diverticulitis of large intestine without perforation or abscess without bleeding; I10 Essential (primary) hypertension; R65.10 Systemic inflammatory response syndrome (SIRS) of non-infectious origin without acute organ dysfunction; D75.839 Thrombocytosis, unspecified; E87.6 Hypokalemia; Z80.3 Family history of malignant neoplasm of breast
CPT/HCPCS: 36415; 36569; 71045; 71275; 73060; 74018; 74176; 74177; 76937; 80048; 80053; 80307; 81001; 82306; 82378; 82607; 82728; 82962; 83036; 83540; 83550; 83690; 83735; 84100; 84478; 85025; 85610; 85652; 85730; 86141; 86850; 86900; 86901; 86920; 87040; 87081; 87086; 87088; 93005; 93971; G0378; J0330; J1100; J1815; J2003; J2250; J2405; J2470; J3490; J7060